=== PATIENT | male | born 1970 | race Caucasian/White ===

== ENCOUNTER 2022-03-06 13:34 | Inpatient (IN) | payer SELFPAY ==
[2022-03-06] VITALS (10 sets, daily range): BP systolic 102–130; BP diastolic 57–73; PULSE 114–128; RESP 17–32; TEMP 36.4–37; O2SAT 93–98; BMI 22.5; BMI 21.1
--- NOTE | 2022-03-06 14:23 | EDS_ITS ---
HPI History of Present Illness Chief Complaint: Shortness of Breath Narrative Narrative: 51-year-old male past medical history of asthma, does not see a primary care provider, presents with increasing dyspnea on exertion and shortness of breath since last evening. He states he went to [employer] to get a Primatene Mist inhaler, and short distances he became very winded. He denies any chest pain. No fevers or chills. He has occasional cough that sometimes is productive of green to yellow sputum. He denies any increased leg swelling. He is a smoker. He denies other past medical history. [facility] Medical History Asthma History of alcohol abuse Tobacco abuse Home Medications NK 03/06/22 [History Last Taken Unknown] Allergy/AdvReac Type Severity Reaction Status Date / Time No Known Allergies Allergy Verified 03/06/22 13:34 Social History (Updated 03/06/22 @ 19:[address] Nisreen Sterling DO) Smoking Status: Current every day smoker tobacco type: cigarettes alcohol intake: former substance use type: does not use ROS ROS ED ROS Narrative Constitutional: No fever, no chills. HEENT: No sore throat. No neck pain. No loss of vision. No rhinorrhea. Cardiovascular: No chest pain. No palpitations. No pedal edema. Respiratory: Occasionally productive cough, positive dyspnea on exertion/shortness of breath. Abdominal: No abdominal pain. No nausea. No vomiting. Genitourinary: No dysuria. No hematuria. Musculoskeletal: No myalgias. No arthralgias. Neurologic: No headaches. No dizziness. No lightheadedness. Skin: No rash. No change in color. Psychiatric: No depression. No anxiety. EXAM Physical Exam Narrative Exam Narrative: Afebrile. Vital signs noted. HEENT: Normocephalic. Atraumatic. PERRL, EOMI. Neck soft and supple. No point tenderness or step off. Cardiovascular: Positive tachycardia. No murmurs, rubs, or gallops appreciated. Respiratory: No tachypnea. Lungs clear to auscultation bilaterally. Gastrointestinal: Abdomen soft, nontender, with normoactive bowel sounds. No rebound or guarding. Neurological: Awake. Alert. Nonfocal, nonlateralizing. Skin: No rash. Normal color. No pallor. Musculoskeletal: No pedal edema. Full range of motion extremities. Const Vital Signs: 03/06/22 13:34 03/06/22 14:45 03/06/22 14:45 Temperature 97.5 F L Temperature Source Temporal Pulse Rate 128 H Respiratory Rate 18 32 H Respiratory Effort Respiratory Pattern Blood Pressure 111/72 Blood Pressure Mean 85 Pulse Ox 97 94 94 Oxygen Delivery Method Room Air Room Air Room Air 03/06/22 14:45 03/06/22 15:31 03/06/22 15:33 Temperature Temperature Source Pulse Rate 114 H Respiratory Rate 30 H Respiratory Effort Short of Breath Respiratory Pattern Tachypnea Blood Pressure 129/72 H Blood Pressure Mean 91 Pulse Ox 95 96 Oxygen Delivery Method Room Air Room Air Room Air 03/06/22 17:01 03/06/22 18:12 Temperature 98.6 F Temperature Source Oral Pulse Rate 119 H 118 H Respiratory Rate 17 28 H Respiratory Effort Respiratory Pattern Blood Pressure 125/71 H 102/57 L Blood Pressure Mean 89 72 Pulse Ox 96 95 Oxygen Delivery Method Room Air Room Air MDM MDM MDM Narrative Medical decision making narrative: RN protocol orders were entered. COVID and influenza swab is negative. Chest x-ray was obtained along with CBC, BMP, and given his tachycardia I ordered a D- dimer if I can rule out pulmonary embolism because of his tachycardia. In the differential diagnosis is also undiagnosed COPD exacerbation versus bronchitis versus pneumonia as he is a smoker. EKG was obtained and interpreted by myself which demonstrates sinus tachycardia at 116 bpm without ectopy or acute ST changes. No STEMI. Initial laboratory work was reviewed his CBC shows elevated white count of 25.7 with hemoglobin anemic at 8.7, platelet count elevated at 1034. Given his tachycardia, my concern is becoming more for sepsis. BMP has returned with hyponatremia of 131, chloride 94 with mild dehydration, normal creatinine and normal BUN. Glucose appropriately elevated at 107 with an anion gap of 10. Chest x-ray interpreted by myself shows a left lower lobe pneumonia. I reviewed the radiology report and agree with left lower lobe pneumonia versus mass, or hernia. I do think that given his breathing difficulty and history of smoker, concern is more for pneumonia and mass. Sepsis work-up was then initiated to include lactic acid and blood cultures. He will be treated with IV antibiotics. However, he also has an elevated D-dimer. CTA will be obtained to further evaluate the left lower lobe consolidation versus mass and to rule out pulmonary embolism. CTA was reviewed. I initially interpreted independently and saw what appears to be a loculated fluid collection. I discussed the patient with the radiologist over the telephone and he states that given the bony erosion of his ribs this is concerning for abscess of the lung/empyema also. His lactic acid was reviewed and is normal at 1.4. He was administered azithromycin and Rocephin initially. Given concern for empyema, I discussed the patient with the hospitalist, Dr. Ora Sterling. She states that she had already discussed the patient with Dr. Cardoso, and the patient will most likely require CT surgery involvement and transfer to a tertiary care center. However, I have contacted 4 different hospitals including [facility], [facility], [facility], and [facility] and there are no available beds, and they are on wait lists. I read discussed the patient with Dr. Ora Sterling who would like Dr. Pagan with surgery consulted if he is to be admitted here at least temporarily while awaiting a bed at a tertiary care center. I discussed the patient with Dr. Pagan who states he is able to put in a chest tube. With further discussion with Dr. Ora Sterling, she will admit the patient to the medical surgical floor in stable condition. I do not feel that he needs ICU admission as Dr. Pagan is at the bedside putting in a chest tube to remove some of the fluid of this pulmonary abscess. Of note, I was able to contact [facility] and the patient was put on a wait list for an available bed, possibly tomorrow. Lab Data Attestation: I reviewed the patient's lab results. Labs: Laboratory Results - last 24 hr 03/06/22 03/06/22 03/06/22 14:26 14:26 14:26 WBC 25.7 H RBC 4.06 L Hgb 8.7 L Hct 31.0 L MCV 76.4 L MCH 21.4 L MCHC 28.1 L RDW Std Deviation 48.2 H RDW Coeff of Andrew 17.2 H Plt Count 1034 H* MPV 7.6 Immature Gran % (Auto) 2.300 H Neut % (Auto) 78.7 H Lymph % (Auto) 13.2 L [place] % (Auto) 5.1 Eos % (Auto) 0.3 Baso % (Auto) 0.4 Absolute Neuts (auto) 20.2 H Absolute Lymphs (auto) 3.38 Nucleated RBC % 0 Diff Path Review May foll Platelet Estimate MKD INC Hypochromasia 1+ Anisocytosis 2+ Microcytosis 1+ PT INR APTT D-Dimer Quant (PE/DVT) Sodium 131 L Potassium 3.9 Chloride 94 L Carbon Dioxide 27.0 Anion Gap 10 BUN 10 Creatinine 0.80 Estim Creat Clear Calc 102.56 Est GFR (MDRD) Af Amer 130 Est GFR (MDRD) Non-Af 108 BUN/Creatinine Ratio 12.5 Glucose 107 H Lactic Acid Calcium 9.4 Lactate Dehydrogenase 180 Urine Color Urine Clarity Urine pH Ur Specific [place] Urine Protein Urine Glucose (UA) Urine Ketones Urine Occult Blood Urine Nitrite Urine Bilirubin Urine Urobilinogen Ur Leukocyte Esterase Urine RBC Urine WBC Ur Squamous Epith Cells Urine Bacteria Urine Mucus 03/06/22 03/06/22 03/06/22 15:00 15:00 16:08 WBC RBC Hgb Hct MCV MCH MCHC RDW Std Deviation RDW Coeff of Andrew Plt Count MPV Immature Gran % (Auto) Neut % (Auto) Lymph % (Auto) [place] % (Auto) Eos % (Auto) Baso % (Auto) Absolute Neuts (auto) Absolute Lymphs (auto) Nucleated RBC % Diff Path Review Platelet Estimate Hypochromasia Anisocytosis Microcytosis PT 16.6 H INR 1.4 APTT 36.9 H D-Dimer Quant (PE/DVT) 1.56 H* Sodium Potassium Chloride Carbon Dioxide Anion Gap BUN Creatinine Estim Creat Clear Calc Est GFR (MDRD) Af Amer Est GFR (MDRD) Non-Af BUN/Creatinine Ratio Glucose Lactic Acid 1.4 Calcium Lactate Dehydrogenase Urine Color Urine Clarity Urine pH Ur Specific [place] Urine Protein Urine Glucose (UA) Urine Ketones Urine Occult Blood Urine Nitrite Urine Bilirubin Urine Urobilinogen Ur Leukocyte Esterase Urine RBC Urine WBC Ur Squamous Epith Cells Urine Bacteria Urine Mucus 03/06/22 16:52 WBC RBC Hgb Hct MCV MCH MCHC RDW Std Deviation RDW Coeff of Andrew Plt Count MPV Immature Gran % (Auto) Neut % (Auto) Lymph % (Auto) [place] % (Auto) Eos % (Auto) Baso % (Auto) Absolute Neuts (auto) Absolute Lymphs (auto) Nucleated RBC % Diff Path Review Platelet Estimate Hypochromasia Anisocytosis Microcytosis PT INR APTT D-Dimer Quant (PE/DVT) Sodium Potassium Chloride Carbon Dioxide Anion Gap BUN Creatinine Estim Creat Clear Calc Est GFR (MDRD) Af Amer Est GFR (MDRD) Non-Af BUN/Creatinine Ratio Glucose Lactic Acid Calcium Lactate Dehydrogenase Urine Color Yellow Urine Clarity Clear Urine pH 6.5 Ur Specific [place] 1.010 Urine Protein 15 H Urine Glucose (UA) Normal Urine Ketones 50 H Urine Occult Blood Negative Urine Nitrite Negative Urine Bilirubin Negative Urine Urobilinogen 1 H Ur Leukocyte Esterase Negative Urine RBC 0 SEEN Urine WBC 0 SEEN Ur Squamous Epith Cells 0-5 SEEN Urine Bacteria 0 SEEN Urine Mucus 0 SEEN Radiography Diagnostic Testing: Clinical Impression(s) from Imaging Studies Chest X-Ray 03/06/22 14:55 IMPRESSION: Left lower lobe mass, diaphragm hernia, or infiltrate is visualized. CT chest can better evaluate. Electronically Signed: Adama Olivera MD at 15:11 EST , Chest CTA 03/06/22 15:22 IMPRESSION: 1. No demonstrated pulmonary embolism or arterial dissection. 2. There is a loculated left pleural effusion. Pleural fluid extends through the ribs into the left axillary space. Mild erosive changes of the left lateral seventh and eighth rib overlying the pleural fluid. Differential would include pulmonary abscess versus a neoplastic process. Electronically Signed: Adama Olivera MD at 16:43 EST , ADDENDUM: 03/06/22 1657 IMPRESSION: 1. No demonstrated pulmonary embolism or arterial dissection. 2. There is a loculated left pleural effusion. Pleural fluid extends through the ribs into the left axillary space. Mild erosive changes of the left lateral seventh and eighth rib overlying the pleural fluid. Differential would include pulmonary abscess versus a neoplastic process. N.B. : The above Results were Read Back by Adama Olivera MD to Leoncio Garcia MD, and understanding confirmed on 03/06/2022 16:50:37 (ET). Electronically Signed: Adama Olivera MD at 16:43 EST Reading Location ID and State: [facility] / [place] , Service support , Critical Care Time Critical Care Time: Yes Critical care time (excluding procedures): 30-74 minutes (33 minutes), Including time spent:, Discussing w/Patient &/or Family/Continuity Writer, Discussing w/Consultants, Arranging Admission or Transfer and Performing Direct Patient Care at Bedside Discharge Plan Dx/Rx/DC Orders Clinical Impression: Abscess of lung, Thrombophilia, Leukocytosis Disposition Disposition: Acute Care Hospital [facility] Discharge Date/Time: 03/06/22 21:42
[2022-03-06 14:34] LABS: Absolute Lymphocyte Count 3.38 X10^3/uL (0.83-4.51); Absolute Neutrophil Count 20.2 X10^3/uL (2.0-7.7); Basophil# 0.11 X10^3/uL; Basophil% 0.4 % (0-1); Eosinophil# 0.07 X10^3/uL; Eosinophils% 0.3 % (0-5); Hemoglobin 8.7 g/dL (13.0-16.5); Lymphocyte # 3.38 X10^3/ul (0.83-4.51); Lymphocyte % 13.2 % (19-41); Mean Corp Hgb Conc 28.1 g/dL (32-36); Mean Corpuscular Hgb 21.4 pg (27.0-32.0); Mean Corpuscular Volume 76.4 fL (80-94); Mean Platelet Vol. 7.6 fl (6.2-12.0); Monocyte# 1.31 X10^3/uL; Monocyte% 5.1 % (0-10); NRBC Flagged by Analyzer 0 % (0-5); Neutrophil # 20.19 X10^3/uL (2.7-7.7); Neutrophil % 78.7 % (47-70); POSITIVE COUNT YES; POSITIVE DIFFERENTIAL YES; Platelet Count 1034 K/mm3 (150-450); RBC Distribution Width CV 17.2 % (11.6-14.6); RBC Distribution Width SD 48.2 fl (35.1-43.9); Red Blood Count 4.06 M/mm3 (4.6-6.2); White Blood Count 25.7 K/mm3 (4.4-11.0)
[2022-03-06 14:46] LABS: Anion Gap 10 (5-15); BUN 10 mg/dL (7-18); BUN/Creat Ratio 12.5 RATIO (10-20); Calcium,Total 9.4 mg/dL (8.5-10.1); Chloride 94 mmol/L (98-107); EST Glomerular Filtration Rate 108 mL/min (>60); Est Glom Filt Rate - Afr Amer 130 mL/min (>60); Estimated Creatinine Clearance 102.56 ml/min; Glucose 107 mg/dL (74-106); Potassium 3.9 mmol/L (3.5-5.1); Sodium Level 131 mmol/L (136-145)
--- NOTE | 2022-03-06 14:55 | RAD_ITS ---
STUDY: X-RAY CHEST REASON FOR EXAM: Male, 51 years old. COUGH TECHNIQUE: XR Chest 1 View COMPARISON: Prior comparison studies are not available for review at this time. FINDINGS: There is atherosclerotic calcification of the aortic arch with tortuosity. There are diffuse degenerative changes of the visualized thoracic spine. There is degenerative osteoarthritis of the bilateral shoulders. There is no demonstrated pleural abnormality. Left lower lobe mass, diaphragm hernia, or infiltrate is visualized. CT chest can better evaluate. Normal size heart. Normal mediastinum and librado. Normal visualized pulmonary arteries. There is no demonstrated abnormality of the visualized soft tissue structures of the upper abdomen. RAD/Chest 1 View (Portable) IMPRESSION: Left lower lobe mass, diaphragm hernia, or infiltrate is visualized. CT chest can better evaluate. Electronically Signed: Adama Olivera MD at 15:11 EST ,
[2022-03-06 14:56] LABS: Differential Indicated SCAN CRITERIA MET; Platelet Estimate MKD INC (ADEQ)
[2022-03-06 14:57] LABS: Anisocytosis 2+; Hypochromasia 1+; Microcytosis 1+
[2022-03-06] MEDS: 0.9% Normal Saline 1,000 ML 999 ML IV (14:59)
--- NOTE | 2022-03-06 15:13 | EKG12_ITS ---
Test Reason : SOB Blood Pressure : / mmHG Vent. Rate : 116 BPM Atrial Rate : 116 BPM P-R Int : 134 ms QRS Dur : 080 ms QT Int : 316 ms P-R-T Axes : 065 027 055 degrees QTc Int : 439 ms Sinus tachycardia Otherwise normal ECG Confirmed by KITA ROBERTS, TOMA ([id number]), editor & co founder ORESTES GRIFFIN ([id number]) on 03/08/2022 1:48:40 PM Referred By: Confirmed By:TOMA EAST MD
[2022-03-06 15:21] LABS: D-Dimer Quantitative (DVT/PE) 1.56 FEU/ug/m (0.27-0.49)
--- NOTE | 2022-03-06 15:22 | CT_ITS ---
We are attempting to reach an attending provider to discuss findings. An addendum with communication details will be sent when the communication is complete. EXAM: CT ANGIOGRAPHY CHEST WITHOUT AND WITH INTRAVENOUS CONTRAST CLINICAL INDICATION: Elevated D dimer PT ARRIVES TO ED WITH INCREASED SOB. HX OF HEAVY SMOKER WITH ASTHMA. TECHNIQUE: Helically acquired angiography images were obtained of the chest without and with intravenous contrast. This CT exam was performed using one or more of the following dose reduction techniques: automated exposure control, adjustment of the mA and/or kV according to patient size, and/or use of iterative reconstruction technique. This report was created using [employer] report [employer] technology. MIP reconstructed images were created and reviewed. CONTRAST: IV 100mL [id number] RADIATION DOSE: CTDIvol = 10.48 mGy, DLP = 411.58 mGy-cm COMPARISON: None. FINDINGS: PULMONARY ARTERIES: No demonstrated pulmonary embolism or arterial dissection. AORTA: Unremarkable. Normal in caliber. No evidence of dissection. GREAT VESSELS OF AORTIC ARCH: Unremarkable. Normal in caliber. No evidence of dissection. LUNGS AND PLEURAL SPACES: There is a loculated left pleural effusion. Pleural fluid extends through the ribs into the left axillary space. Mild erosive changes of the left lateral seventh and eighth rib overlying the pleural fluid. Differential would include pulmonary abscess versus a neoplastic process. No mass. No pneumothorax. HEART: Unremarkable. Heart size is normal. No pericardial effusion. No signs of right heart strain, ratio of right ventricle to left ventricle measures less than 1. MEDIASTINUM: Unremarkable. No mediastinal or hilar adenopathy. Esophagus is unremarkable. No hiatal hernia. THYROID: Unremarkable. No thyroid lesions. BONES/JOINTS: There are degenerative changes of the shoulders. There are multi-level degenerative changes of the thoracic spine. No suspicious lytic or blastic abnormality. OTHER FINDINGS: Critical finding called and case discussed. CT/CTA Chest W/WO Contrast IMPRESSION: 1. No demonstrated pulmonary embolism or arterial dissection. 2. There is a loculated left pleural effusion. Pleural fluid extends through the ribs into the left axillary space. Mild erosive changes of the left lateral seventh and eighth rib overlying the pleural fluid. Differential would include pulmonary abscess versus a neoplastic process. Electronically Signed: Adama Olivera MD at 16:43 EST ,
[2022-03-06 16:42] LABS: International Normalized Ratio 1.4; Prothrombin Time (Protime)PT. 16.6 SECONDS (11.7-14.9)
[2022-03-06 16:43] LABS: Partial Thromboplast Time 36.9 Seconds (24.1-36.2)
[2022-03-06 17:02] LABS: Bacteria 0 SEEN /hpf (None Seen); Mucous, Urine 0 SEEN /hpf (<or=2+); Red Blood Cells-Urine 0 SEEN /hpf (0-5); White Blood Cells 0 SEEN /hpf (0-5)
[2022-03-06 17:03] LABS: Color, Urine Yellow (Yellow); Glucose, Dipstick Normal (Normal); Ketone-Dipstick 50 mg/dl (Negative); Leukocyte Esterase-Dipstick Negative /ul (Negative); Nitrite-Dipstick Negative (Negative); Occult Blood-Urine Negative /ul (Negative); Protein-Dipstick 15 mg/dl (Negative); Urine Bilirubin Dipstick Negative (Negative); Urine Clarity Clear (Clear); Urine Urobilinogen 1 mg/dl (Normal); Urine pH 6.5 (5.0 - 8.0)
[2022-03-06 17:09] LABS: Lactic Acid 1.4 mmol/L (0.4-1.9)
[2022-03-06 17:14] LABS: Squamous Epithelial Cells - UA 0-5 SEEN /hpf (0-5)
--- NOTE | 2022-03-06 18:55 | PCM.HP.STD ---
[facility] - General General Date of Admission: 03/06/22 Date of Service: 03/06/22 Chief Complaint: Shortness of breath HPI Scott CLIFTON, is a 51 M who presented to the emergency department [facility] on 03/06/2022 with shortness of breath. Patient states he has had a cough for about the last 2 to 3 days and was walking into the store where he got overtly dyspneic and felt like he was going to pass out. He denied any chest pain, fever, chills, leg swelling, lumps or bumps, nausea, vomiting, diarrhea, melena, hematochezia, night sweats, unintentional weight loss. He states his cough is intermittently productive of yellowish-green sputum. He does not follow with a physician regularly although he does report he has asthma. He does does smoke about 1/4 pack of cigarettes a day and has remote history of alcohol use but none recently. Upon presentation the emergency department his temperature was 97.5, heart rate 128, blood pressure 111/72, respiratory rate was anywhere from 17-32 and oxygen saturations were 94 to 97% on room air. His CBC shows a markedly elevated leukocytosis with a white count of 25.7 and a left shift with 78.7% neutrophilia. The differential was unremarkable otherwise. He had a microcytic anemia with a hemoglobin of 8.7 (baseline unknown). He also had a markedly elevated platelet count at 1,034,000. His coags showed mildly elevated PT and PTT as well as INR of 1.4. His D-dimer was 1.56. His chemistry showed mild hyponatremia and hypochloremia with normal renal function. His lactic acid was 1.4. His UA is not suggestive of infection. His EKG shows sinus tachycardia. Chest x-ray showed a left lower lobe mass, diaphragmatic hernia or infiltrate and therefore a CTA of his chest was performed. CTA of his chest demonstrated no PE or arterial dissection however there was a large loculated left pleural effusion with pleural fluid extending through the ribs into the axillary space and mild erosive changes at the lateral left seventh and eighth ribs. I discussed the case with the emergency department physician and felt he would need definitive treatment with CT surgery and they called and got him on a waiting list at [facility] however there are no current beds available. General surgery here was also called and Dr. Pagan agreed to place a left-sided chest tube in the patient for temporary management. We both feel that he will need CT surgery involvement ultimately. [facility] Medical History Asthma History of alcohol abuse Tobacco abuse Home Medications NK 03/06/22 [History Last Taken Unknown] Allergy/AdvReac Type Severity Reaction Status Date / Time No Known Allergies Allergy Verified 03/06/22 13:34 no significant family history no surgical history Social History (Updated 03/06/22 @ 19:[address] Nisreen Sterling DO) Smoking Status: Current every day smoker tobacco type: cigarettes Smoking packs per day: 0.25 Smoking cigarettes per day: 5.0 alcohol intake: former substance use type: does not use ROS Constitutional Constitutional: Denies anorexia, change in weight, chills, fatigue, fever(s), malaise, night sweats, weakness or other Eyes Eyes: Denies blurry vision, change in eye color, change in vision, discharge from eye(s), double vision, erythema, eye pain, loss of vision or other ENT HEENT: Denies abnormal hearing, dysphagia, ear pain, epistaxis, headache(s), hearing loss, nasal congestion, nasal discharge, post nasal drip, sinus pressure, sore throat or other Cardiovascular Cardiovascular: Denies chest pain, claudication, dyspnea on exertion, edema, lightheadedness, orthopnea, palpitations, paroxysmal nocturnal dyspnea, rapid heart rate, syncope or other Respiratory/Chest Respiratory/Chest: Reports cough, dyspnea, productive cough and shortness of breath with exertion; Denies excessive phlegm production, hemoptysis, shortness of breath at rest, wheezing or other Gastrointestinal Gastrointestinal: Denies abdominal pain, coffee ground emesis, constipation, diarrhea, dyspepsia, hematemesis, hematochezia, loose stools, melena, nausea, vomiting or other Genitourinary Genitourinary: Denies burning urination, difficulty urinating, dysuria, hematuria, nocturia, urinary frequency, urinary hesitancy, urinary incontinence, urinary urgency or other Musculoskeletal Musculoskeletal: Denies arthralgias, back pain, joint pain, joint stiffness, joint swelling, myalgias, neck pain or other Neurologic Neurologic: Denies abnormal gait, abnormal speech, confusion, disequilibrium, dizziness, focal weakness, headache(s), numbness, paresthesias, seizure-like activity, seizures, syncope, tingling, tremor(s) or other Psychiatric Psychiatric: Denies anxiety, depression, homicidal ideation, suicidal ideation or other Endocrine Endocrinology: Denies change in body appearance, cold intolerance, excessive sweating, heat intolerance, polydipsia, polyuria or other Hematologic/Lymphatic Hematologic/Lymphatic: Denies anemia, easy bleeding, easy bruising, lymphadenopathy or other Allergic/Immunologic Allergic/Immunologic: Denies rhinitis, hives, eczemia, asthma or other Vital Signs Vital Signs Vital Signs: 03/06/22 13:34 03/06/22 14:45 03/06/22 14:45 Temperature 97.5 F L Temperature Source Temporal Pulse Rate 128 H Respiratory Rate 18 32 H Respiratory Effort Respiratory Pattern Blood Pressure 111/72 Blood Pressure Mean 85 Pulse Ox 97 94 94 Oxygen Delivery Method Room Air Room Air Room Air 03/06/22 14:45 03/06/22 15:31 03/06/22 15:33 Temperature Temperature Source Pulse Rate 114 H Respiratory Rate 30 H Respiratory Effort Short of Breath Respiratory Pattern Tachypnea Blood Pressure 129/72 H Blood Pressure Mean 91 Pulse Ox 95 96 Oxygen Delivery Method Room Air Room Air Room Air 03/06/22 17:01 03/06/22 18:12 Temperature 98.6 F Temperature Source Oral Pulse Rate 119 H 118 H Respiratory Rate 17 28 H Respiratory Effort Respiratory Pattern Blood Pressure 125/71 H 102/57 L Blood Pressure Mean 89 72 Pulse Ox 96 95 Oxygen Delivery Method Room Air Room Air Weight Weight: 67.132 kg Body Mass Index (BMI) 22.5 Physical Exam Const alert, oriented x3 and no apparent distress Constitutional Narrative: Thin, middle-aged white male, sitting up in bed watching television the emergency department, appears comfortable and nontoxic, appears malnourished and much older than stated age General Appearance: cooperative HEENT normocephalic, head/scalp atraumatic, hearing grossly normal bilaterally and moist oral mucous membranes HEENT Narrative: Significant temporal wasting, dentition is poor with significant caries and teeth he has left, Mallampati is 1, no thrush Eyes PERRL and EOMs intact bilaterally; Negative for conjunctivae normal Eyes Narrative: Conjunctival pallor, no scleral icterus Neck no lymphadenopathy, supple, no JVD and no carotid bruits Neck Narrative: Trachea midline, no thyroid enlargement Resp Resp Narrative: Absent breath sounds at base that extends approximately two th[address] way to the apex, diminished but clear on the right with few scattered wheeze and expiratory Auscultation: wheezes; Negative for crackles or rhonchi Cardio regular rhythm, S1 normal heart sound, S2 normal heart sound, no murmurs, no rub, no gallops and no clicks Cardio Narrative: Tachycardia-mild GI normal to inspection, nondistended, normoactive bowel sounds, soft to palpation and non-tender GI Narrative: Scaphoid Extremity no clubbing, cyanosis or edema Extremity Narrative: 2+ pedal pulses Skin no rashes or lesions noted, no wounds, skin turgor normal, no jaundice, no petechiae and no mottling Skin Narrative: Pale Neuro oriented x3, CN's II-XII intact bilaterally, moves all extremities and no focal motor deficits Speech: speech normal Psych affect normal Psych Narrative: Very pleasant and appropriately interactive Results Lab / Micro Data Attestation: I reviewed the patient's lab results. Result Diagrams: 03/06/22 14:26 03/06/22 14:26 Labs: Laboratory Results - last 24 hr 03/06/22 14:26: WBC 25.7 H, RBC 4.06 L, Hgb 8.7 L, Hct 31.0 L, MCV 76.4 L, MCH 21.4 L, MCHC 28.1 L, RDW Std Deviation 48.2 H, RDW Coeff of Andrew 17.2 H, Plt Count 1034 H*, MPV 7.6, Immature Gran % (Auto) 2.300 H, Neut % (Auto) 78.7 H, Lymph % (Auto) 13.2 L, [place] % (Auto) 5.1, Eos % (Auto) 0.3, Baso % (Auto) 0.4, Absolute Neuts (auto) 20.2 H, Absolute Lymphs (auto) 3.38, Nucleated RBC % 0, Diff Path Review May foll, Platelet Estimate MKD INC, Hypochromasia 1+, Anisocytosis 2+, Microcytosis 1+ 03/06/22 14:26: Sodium 131 L, Potassium 3.9, Chloride 94 L, Carbon Dioxide 27.0, Anion Gap 10, BUN 10, Creatinine 0.80, Estim Creat Clear Calc 102.56, Est GFR (MDRD) Af Amer 130, Est GFR (MDRD) Non-Af 108, BUN/Creatinine Ratio 12.5, Glucose 107 H, Calcium 9.4 03/06/22 15:00: D-Dimer Quant (PE/DVT) 1.56 H* 03/06/22 15:00: PT 16.6 H, INR 1.4, APTT 36.9 H 03/06/22 16:08: Lactic Acid 1.4 03/06/22 16:52: Urine Color Yellow, Urine Clarity Clear, Urine pH 6.5, Ur Specific [place] 1.010, Urine Protein 15 H, Urine Glucose (UA) Normal, Urine Ketones 50 H, Urine Occult Blood Negative, Urine Nitrite Negative, Urine Bilirubin Negative, Urine Urobilinogen 1 H, Ur Leukocyte Esterase Negative, Urine RBC 0 SEEN, Urine WBC 0 SEEN, Ur Squamous Epith Cells 0-5 SEEN, Urine Bacteria 0 SEEN, Urine Mucus 0 SEEN Micro: Microbiology 03/06/22 13:45 Nasal Secretion SARS-CoV-2 & FLU Antigen (Rapid) - Final Radiology Impression Chest X-Ray 03/06/22 14:55 IMPRESSION: Left lower lobe mass, diaphragm hernia, or infiltrate is visualized. CT chest can better evaluate. Electronically Signed: Adama Olivera MD at 15:11 EST , Chest CTA 03/06/22 15:22 IMPRESSION: 1. No demonstrated pulmonary embolism or arterial dissection. 2. There is a loculated left pleural effusion. Pleural fluid extends through the ribs into the left axillary space. Mild erosive changes of the left lateral seventh and eighth rib overlying the pleural fluid. Differential would include pulmonary abscess versus a neoplastic process. Electronically Signed: Adama Olivera MD at 16:43 EST , ADDENDUM: 03/06/22 1657 IMPRESSION: 1. No demonstrated pulmonary embolism or arterial dissection. 2. There is a loculated left pleural effusion. Pleural fluid extends through the ribs into the left axillary space. Mild erosive changes of the left lateral seventh and eighth rib overlying the pleural fluid. Differential would include pulmonary abscess versus a neoplastic process. N.B. : The above Results were Read Back by Adama Olivera MD to Leoncio Garcia MD, and understanding confirmed on 03/06/2022 16:50:37 (ET). Electronically Signed: Adama Olivera MD at 16:43 EST , Assessment & Plan Assessment/Plan (1) Microcytic anemia: (2) Shortness of breath: (3) Pleural effusion, left: (4) Thrombophilia: (5) Leukocytosis: PLAN: Plan Large left pleural effusion -Suspect malignant versus empyema -CTA of the chest shows no PE or arterial dissection but a loculated large left pleural effusion that extends through the ribs into the axillary space on the left with mild erosive changes of the left lateral seventh and eighth rib overlying the pleural fluid -Dr. Pagan on consult and placing chest tube in the emergency department -Send fluid for cytology and cultures as well as lab for lights criteria -LDH pending serum -Start broad-spectrum antibiotics with vancomycin and Zosyn -Check sputum culture -Transfer in progress to [facility] for definitive treatment with cardiothoracic surgery as I suspect this will least need a decortication -Pain medication for chest tube -Bowel regimen with pain medication Leukocytosis -White count is markedly elevated and there is a left shift -Blood and urine cultures are pending -Sputum culture ordered if able to produce -Broad-spectrum antibiotics -Check HIV -Repeat lab in a.m. Thrombophilia -Likely related to acute infectious process versus malignancy -Repeat in a.m. -DVT prophylaxis Microcytic anemia -Baseline unknown -Patient does not have any symptoms consistent with acute blood loss including hemoptysis/melena/hematochezia/hematemesis -Check iron studies/ferritin/reticulocyte count -Repeat CBC in a.m. -Check Hemoccult Shortness of breath -Patient is not requiring any supplemental oxygen -Likely related to large effusion on the left -Should improve with chest tube placement and drainage -Monitor oxygen saturations Suspected malnutrition -Dietitian consulted -Start Ensure supplements -Start Tyson supplements as I do anticipate the patient will need CT surgery involvement Tobacco abuse -Smoking about a quarter of a pack a day -Recommend cessation -Patient denies need for nicotine replacement therapy History of alcohol abuse -Remote -Encourage continued cessation DVT prophylaxis -Lovenox 40 mg daily CODE STATUS -Full code Charges/Coding Visit Charges Inpatient E&M: 06855 Init Hosp L3
[2022-03-06] MEDS: HYDROmorphone 0.5 MG/0.5 ML SYRINGE IV (18:57)
--- NOTE | 2022-03-06 19:13 | ED.RN ---
[facility] TRANSFER LINE CALLS BACK TO ED. REPORTS PT WILL BE ACCEPTED UNDER DR. EISENBERG. PT IS ON A WAIT LIST FOR A BED AT [facility]. PER TRANSFER LINE, PT WILL LIKELY NO HAVE A BED UNTIL TOMORROW.
[2022-03-06] MEDS: Lidocaine 1% (30 ml sdv) 30 ML Vial INFILT (19:28)
[2022-03-06 19:40] LABS: LDH 180 U/L (87-241)
--- NOTE | 2022-03-06 20:28 | EX.PCM.CON.S ---
Assessment & Plan Assessment/Plan (1) Pleural effusion, left: PLAN: This is a 51-year-old male with minimal past medical history aside from smoking and asthma, who presents with a rather acute onset of dyspnea. ER work-up has been remarkable for laboratories that demonstrate anemia, severe leukocytosis, and significant thrombocytosis. Given an elevated D-dimer, CTA of the chest was ordered. While no pulmonary embolus was identified a large loculated left-sided pleural effusion was described. There is apparent to radiology that this effusion may be eroding the patient's inner chest wall and extending beyond the pleural cavity proper. On observing this CT imaging for myself, I agreed with my colleagues that patient would benefit from transfer to a tertiary facility with cardiothoracic surgery capabilities. I was quickly notified, however, that located within [facility] were not able to accept patient in transfer due to limited bed availability this evening. Therefore, I was asked to place a chest tube into this loculation to try to obtain source control while we await bed availability. I agreed to this request, but was careful to lay out to Mr. Weaver that our differential includes infectious etiologies, neoplastic etiologies, and potential to involve both. With this differential, I shared with them that he should expect transfer once a bed is available. Patient expressed understanding of this information also provided his consent to provide with left-sided thoracostomy. Please see procedure note for more detailed explanation of this procedure. Patient to be admitted to the hospitalist service, but surgery will continue to follow for chest tube management. HPI Consult Data Date of Consult: 03/06/22 HPI Narrative HPI Narrative: KANDIS WEAVER, is a 51 M who presents to [facility] with complaints of shortness of breath that developed acutely over the last 2 days. Along with his shortness of breath he has experienced a mildly productive cough. He states it has been productive of alternating clear and thin yellow sputum. He denies any hemoptysis or hematemesis. He has no recent history of weight loss aside from some intentional weight loss that he began to undertake a year ago. He denies feeling any recent lymphadenopathy. Patient admits to a longstanding diagnosis of asthma and smoking. [facility] Medical History Asthma History of alcohol abuse Tobacco abuse Home Medications NK 03/06/22 [History Last Taken Unknown] Allergy/AdvReac Type Severity Reaction Status Date / Time No Known Allergies Allergy Verified 03/06/22 13:34 Family History no significant family his Surgical History no surgical history Social History (Updated 03/06/22 @ 19:[address] Nisreen Sterling, DO) Smoking Status: Current every day smoker tobacco type: cigarettes Smoking packs per day: 0.25 Smoking cigarettes per day: 5.0 alcohol intake: former substance use type: does not use Physical Exam Const alert and oriented x3 Constitutional Narrative: Mildly dyspneic General Appearance: cooperative and disheveled Chest Chest Narrative: Patient with a rounded fluctuant bump to his upper posterior chest wall that is soft and tender to palpation. There is no superficial erythema or warmth to the area. Resp Resp Narrative: Mildly labored breathing Effort and Inspection: able to speak in complete sentences Lab / Micro Data Result Diagrams: 03/06/22 14:26 03/06/22 14:26 Labs: Laboratory Results - last 24 hr 03/06/22 14:26: WBC 25.7 H, RBC 4.06 L, Hgb 8.7 L, Hct 31.0 L, MCV 76.4 L, MCH 21.4 L, MCHC 28.1 L, RDW Std Deviation 48.2 H, RDW Coeff of Andrew 17.2 H, Plt Count 1034 H*, MPV 7.6, Immature Gran % (Auto) 2.300 H, Neut % (Auto) 78.7 H, Lymph % (Auto) 13.2 L, [place] % (Auto) 5.1, Eos % (Auto) 0.3, Baso % (Auto) 0.4, Absolute Neuts (auto) 20.2 H, Absolute Lymphs (auto) 3.38, Nucleated RBC % 0, Diff Path Review May , Platelet Estimate MKD INC, Hypochromasia 1+, Anisocytosis 2+, Microcytosis 1+ 03/06/22 14:26: Sodium 131 L, Potassium 3.9, Chloride 94 L, Carbon Dioxide 27.0, Anion Gap 10, BUN 10, Creatinine 0.80, Estim Creat Clear Calc 102.56, Est GFR (MDRD) Af Amer 130, Est GFR (MDRD) Non-Af 108, BUN/Creatinine Ratio 12.5, Glucose 107 H, Calcium 9.4 03/06/22 14:26: Lactate Dehydrogenase 180 03/06/22 15:00: D-Dimer Quant (PE/DVT) 1.56 H* 03/06/22 15:00: PT 16.6 H, INR 1.4, APTT 36.9 H 03/06/22 16:08: Lactic Acid 1.4 03/06/22 16:52: Urine Color Yellow, Urine Clarity Clear, Urine pH 6.5, Ur Specific [place] 1.010, Urine Protein 15 H, Urine Glucose (UA) Normal, Urine Ketones 50 H, Urine Occult Blood Negative, Urine Nitrite Negative, Urine Bilirubin Negative, Urine Urobilinogen 1 H, Ur Leukocyte Esterase Negative, Urine RBC 0 SEEN, Urine WBC 0 SEEN, Ur Squamous Epith Cells 0-5 SEEN, Urine Bacteria 0 SEEN, Urine Mucus 0 SEEN Micro: Microbiology 03/06/22 13:45 Nasal Secretion SARS-CoV-2 & FLU Antigen (Rapid) - Final Radiology Impression Chest X-Ray 03/06/22 14:55 IMPRESSION: Left lower lobe mass, diaphragm hernia, or infiltrate is visualized. CT chest can better evaluate. Electronically Signed: Adama Olivera MD at 15:11 EST , Chest CTA 03/06/22 15:22 IMPRESSION: 1. No demonstrated pulmonary embolism or arterial dissection. 2. There is a loculated left pleural effusion. Pleural fluid extends through the ribs into the left axillary space. Mild erosive changes of the left lateral seventh and eighth rib overlying the pleural fluid. Differential would include pulmonary abscess versus a neoplastic process. Electronically Signed: Adama Olivera MD at 16:43 EST , ADDENDUM: 03/06/22 5967 IMPRESSION: 1. No demonstrated pulmonary embolism or arterial dissection. 2. There is a loculated left pleural effusion. Pleural fluid extends through the ribs into the left axillary space. Mild erosive changes of the left lateral seventh and eighth rib overlying the pleural fluid. Differential would include pulmonary abscess versus a neoplastic process. N.B. : The above Results were Read Back by Adama Olivera MD to Leoncio Garcia MD, and understanding confirmed on 03/06/2022 16:50:37 (ET). Electronically Signed: Adama Olivera MD at 16:43 EST , Charges/Coding Visit Charges Inpatient E&M: 23050 Init Hosp L2
--- NOTE | 2022-03-06 20:35 | RAD_ITS ---
STUDY: X-RAY CHEST REASON FOR EXAM: Male, 51 years old. CHEST TUBE PLACEMENT TECHNIQUE: XR Chest 1 View COMPARISON: Study done earlier today. FINDINGS: Normal visualized aortic arch and descending thoracic aorta. There are diffuse degenerative changes of the visualized thoracic spine. Normal visualized ribs, clavicles, and shoulders. There is no pneumothorax. Left chest tube is in place. Decrease in size of the left loculated pleural effusion. Overlying minimal subcutaneous emphysema. Normal size heart. Normal mediastinum and librado. Normal visualized pulmonary arteries. There is no demonstrated abnormality of the visualized soft tissue structures of the upper abdomen. RAD/Chest 1 View (Portable) IMPRESSION: There is no pneumothorax. Left chest tube is in place. Decrease in size of the left loculated pleural effusion. Overlying minimal subcutaneous emphysema. Electronically Signed: Adama Olivera MD at 20:49 EST ,
--- NOTE | 2022-03-06 20:45 | PCM.OP.PRO ---
Procedure Report Date of Procedure: 03/06/22 Procedure name: Insertion of left tube thoracostomy (28 Fr) Procedure in detail : After obtaining consent from patient, the procedure was begun following a brief timeout confirming both the patient and the procedure. The insertion site was selected by identifying the intercostal space posteriorly where I was able to see fluid layering within the pleural cavity on ultrasound. On ultrasound guidance I advanced a 22-gauge spinal needle into this fluid and back aspirated confirming purulence. Then the chest wall was then locally anesthetized with 20 mL 1% lidocaine. A scalpel was used to incise the skin with an approximately 4 cm transverse incision. Blunt dissection was used to spread the subcutaneous tissue and underlying intercostal muscle fibers. Then through controlled pressure a Amira clamp was used to access the pleural cavity. This tract was bluntly spread open and the clamp was exchanged for the chest tube as purulent fluid began rushing out of the cavity. Initially in the chest tube was then tied in, was concerned that I did not see titling and then palpated the chest tube above the intercostal muscles outside of the pleural cavity. Therefore the ties were cut and the chest tube was reinserted into the pleural cavity. Again, we encountered an abundance of purulent fluid and this time saw the tube titling. Further, when the patient coughed there was a great expulsion of purulent fluid in the waterseal chamber begin recording a small air leak. Satisfied with this result the chest tube was tied in with 2x2 0 sutures using a Karl sandal technique to secure the tube. In total, there was immediate return of 900 mL of purulence after the tube was connected to the Pleur-evac collection device. (There was, conservatively, and additional 500 mL that escaped collection onto the patient's bedding and our procedure field. The Pleur-evac was connected to wall suction with a chest tube suction of -20 cmH2O. There a small intermittent air leak. The site was dressed with Adaptic gauze and regular gauze to pad the skin against the chest tube and this dressing was taped in place with a mesentery at the distal portion of the chest tube to allow for limited movement. A post-procedure chest x-ray was obtained to confirm tube position. Complications: None EBL: 5 mL Procedures Hospitalists Procedures: 16211 Insertion of Chest Tube
[2022-03-06 22:20] LABS: HIV - WCH Non-Reactive (Nonreactive)
[2022-03-06 22:35] LABS: RET-HE 18.8 pg (30-35); Reticulocyte Count 2.96 % (0.5-1.5)
[2022-03-06 22:46] LABS: Platelet Count 1165 K/mm3 (150-450)
[2022-03-06 22:50] LABS: Ferritin 285 ng/mL (26-388); Iron 16 ug/dL (65-175); Iron Binding Capacity,Total 227 ug/dL (250-450)
--- NOTE | 2022-03-06 22:59 | FLU_PTH ---
PATIENT: KANDIS CLIFTON LOC: MS3 U#:[id number] AGE/SX: 51/M ROOM: [facility] RE03/06/[address]: Dr. Jin Tamayo MD : 1970 BED: 1 DIS: 03/10/2022 SPEC #: [id number] RECD: 03/08/22 07:31 STATUS: SOURamírez REQ #: [id number] SONA: 03/06/22 22:[address]: Nisreen Sterling DEPT: CYTOLOGY RECD BY: Haydee Cerna ENTERED: 03/08/22 07:31 SP TYPE: Fluid OTHR DR: MD Dr. Nisreen Hagan, DO No Primary Care Phys Tissues: Pleural fluid, NOS Procedures: Special Stain Group II Surgery Specimen Level IV Cytospin Fluid Comments: @ Ordering doctor for SSII edited from to @ by RGOOD at 03/08/22 1527 @ Ordering doctor for SUIV edited from to @ by LAWANDA at 03/08/22 1527 @ Ordering doctor for CYSPIN edited from to @ by RGOOD at 03/08/22 1527 @ Submitting doctor edited from to @ by RGOOD at 03/08/22 1527 HEADER OPERATION: Not noted PRE-OP DIAGNOSIS: Left pleural effusion TISSUE SUBMITTED: Pleural fluid for cytology DIAGNOSIS CYTOLOGY Pleural fluid for cytology (cytospin and cell block): Negative for malignant cells. Acute inflammation. AM:liyah 03/09/2022 CYTOLOGY STUDY Slides are reviewed. CYTOLOGY GROSS Received is 30 ml of red bloody cloudy fluid labeled with the patient's name and and designated per the requisition as pleural fluid. Submitted for cytology preparation including cell block. / liyah 03/08/2022 TC:2 CPT: 96624, 81544
[2022-03-06] MEDS: Acetaminophen 500 MG Tablet 1000 MG PO (23:19)
[2022-03-06] MEDS: guaiFENesin 1,200 MG Tablet 1200 MG PO (23:19)
[2022-03-06] MEDS: oxyCODONE 5 MG Tablet PO (23:20)
[2022-03-06] MEDS: Ensure Plus High Protein 120 ML LIQUID PO (23:23)
[2022-03-06] MEDS: 0.9% Saline Lock 10 ML Syringe IV (23:42)
[2022-03-06 23:54] LABS: Protein, Body Fluid 6.4 g/dL (Not Establ.)
[2022-03-07] VITALS (21 sets, daily range): BP systolic 96–107; BP diastolic 58–71; PULSE 85–109; RESP 15–21; TEMP 36.6–36.9; O2SAT 95–100
--- NOTE | 2022-03-07 01:00 | NURSING ---
Ismael from [facility] notified that additional bed bug was found in pt's room after admission. Bed bug placed in specimen cup and given to [facility].
[2022-03-07] MEDS: Vancomycin IV 1,000 MG/200 ML BAG 200 MG IV (01:11)
--- NOTE | 2022-03-07 01:22 | PCM.RX.CS ---
Consult Pharmacy has been consulted to manage selected antiobiotic: Vancomycin Type of Consult: New start Prior Doses of Antibiotics Received/Current Regimen: Medications Vancomycin HCl 750 mg/ Sodium (Chloride) 265 mls @ 250 mls/hr IV Q8H DMITRY Discontinued Medications Vancomycin HCl (Vancomycin) 1,000 mg in 200 mls @ 200 mls/hr IV X1 ONE Stop: 03/06/22 23:29 Last Admin: 03/07/22 01:11 Dose: 200 mls/hr Labs: Sodium 131 mmol/L (136-145) L 03/06/22 14:26 Potassium 3.9 mmol/L (3.5-5.1) 03/06/22 14:26 Chloride 94 mmol/L (98-107) L 03/06/22 14:26 Carbon Dioxide 27.0 mmol/L (21.0-32.0) 03/06/22 14:26 Anion Gap 10 (5-15) 03/06/22 14:26 BUN 10 mg/dL (7-18) 03/06/22 14:26 Creatinine 0.80 mg/dL (0.70-1.30) 03/06/22 14:26 Est GFR (MDRD) Af Amer 130 mL/min (>60) 03/06/22 14:26 Est GFR (MDRD) Non-Af 108 mL/min (>60) 03/06/22 14:26 BUN/Creatinine Ratio 12.5 RATIO (10-20) 03/06/22 14:26 Glucose 107 mg/dL (74-106) H 03/06/22 14:26 Microbiology: Microbiology 03/06/22 20:23 Fluid - Pleural (Lung) Gram Stain - Preliminary 03/06/22 16:52 Urine, Clean Catch Legionella Antigen - Final 03/06/22 16:52 Urine, Clean Catch Streptococcus pneumoniae Antigen (M - Final Streptococcus pneumonia Ag 03/06/22 13:45 Nasal Secretion SARS-CoV-2 & FLU Antigen (Rapid) - Final Weight used for dosin.2 kg Estimated Creatinine Clearance: 102 Goal Trough: 15-20 mcg/mL Pharmacy Plan for Drug Dosing: Pharmacy Service will continue to monitor and adjust dosing as required. Follow-Up Labs: Trough Vancomycin Labs to be done on [date and time ordered]: 03/08/22 @0030
[2022-03-07 01:30] LABS: Cytology, Body Fluid / CSF SEE PATHOLOGY REPORT
[2022-03-07 01:43] LABS: Glucose, Body Fluid 19 mg/dL (40-70); LDH,Body Fluid > 4000 Units/l (Not Establ.)
--- NOTE | 2022-03-07 05:59 | RAD_ITS ---
STUDY: X-RAY CHEST REASON FOR EXAM: Male, 51 years old. PNEUMONIA TECHNIQUE: PA and lateral views of the chest. COMPARISON: March 06, 2022 FINDINGS: 1. Stable left lower lobe chest tube. No visualized pneumothorax. 2. No change in streaky mild interstitial edema throughout the left lower lobe with a small pleural effusion 3. The right lung is clear 4. Cystic emphysematous changes redemonstrated in both lungs 5. Normal heart size 6. Stable mediastinal and osseous structures There is no demonstrated abnormality of the visualized soft tissue structures of the upper abdomen. RAD/Chest PA and Lateral IMPRESSION: * No change in streaky mild interstitial edema throughout the left lower lobe with a small pleural effusion Electronically Signed: Khanh Shelton MD at 8:30 EST ,
[2022-03-07] MEDS: Acetaminophen 500 MG Tablet 1000 MG PO ×3 (06:33→21:13)
[2022-03-07 06:37] LABS: M R Staph aureus DNA By PCR Negative (Negative); Probe Check PASS; Specimen Processing Control PASS
[2022-03-07 07:12] LABS: Absolute Neutrophil Count 21.2 X10^3/uL (2.0-7.7); Basophil# 0.09 X10^3/uL; Basophil% 0.3 % (0-1); Eosinophil# 0.05 X10^3/uL; Eosinophils% 0.2 % (0-5); Hematocrit 25.3 % (40-54); Hemoglobin 7.1 g/dL (13.0-16.5); Lymphocyte % 11.4 % (19-41); Mean Corp Hgb Conc 28.1 g/dL (32-36); Mean Corpuscular Hgb 21.4 pg (27.0-32.0); Mean Corpuscular Volume 76.2 fL (80-94); Mean Platelet Vol. 7.9 fl (6.2-12.0); Monocyte# 1.55 X10^3/uL; Monocyte% 5.9 % (0-10); NRBC Flagged by Analyzer 0 % (0-5); Neutrophil # 21.23 X10^3/uL (2.7-7.7); Neutrophil % 80.6 % (47-70); POSITIVE COUNT YES; POSITIVE DIFFERENTIAL YES; Platelet Count 777 K/mm3 (150-450); RBC Distribution Width CV 17.2 % (11.6-14.6); RBC Distribution Width SD 47.8 fl (35.1-43.9); Red Blood Count 3.32 M/mm3 (4.6-6.2); White Blood Count 26.3 K/mm3 (4.4-11.0)
[2022-03-07 07:21] LABS: Differential Indicated SCAN CRITERIA MET
[2022-03-07] MEDS: Ipratropium/Albuterol Sulfate 3 ML AMPUL.NEB INHALATION ×3 (07:33→19:50)
[2022-03-07 07:46] LABS: Hypochromasia 2+; Microcytosis 2+; Platelet Estimate MOD INC (ADEQ)
[2022-03-07 07:51] LABS: ALB/GLOB Ratio 0.3 RATIO (0.9-2.4); AST(SGOT) 15 U/L (15-37); Alanine Aminotransfer ALT/SGPT 11 U/L (16-61); Albumin, Serum 1.7 g/dL (3.2-5.0); Alkaline Phosphatase 73 U/L (45-117); Anion Gap 6 (5-15); BUN 10 mg/dL (7-18); BUN/Creat Ratio 14.3 RATIO (10-20); Calcium,Total 8.2 mg/dL (8.5-10.1); Chloride 97 mmol/L (98-107); EST Glomerular Filtration Rate 126 mL/min (>60); Est Glom Filt Rate - Afr Amer 153 mL/min (>60); Estimated Creatinine Clearance 110.35 ml/min; Globulin 5.3 g/dL (2.2-4.2); Glucose 166 mg/dL (74-106); Magnesium 2.2 mg/dL (1.6-2.6); Phosphorus 3.3 mg/dL (2.5-4.9); Potassium 3.9 mmol/L (3.5-5.1); Sodium Level 131 mmol/L (136-145); Thyroid Stim Hormone (TSH) 4.52 uIU/mL (0.358-3.74)
[2022-03-07] MEDS: 0.9% Saline Lock 10 ML Syringe IV ×3 (08:26→21:14)
[2022-03-07] MEDS: Furosemide 20 MG/2 ML VIAL IV (08:26)
[2022-03-07] MEDS: Juven (unflavored) Packet 1 PACKET PO ×2 (09:18→17:01)
[2022-03-07] MEDS: Enoxaparin 40 MG/0.4 ML Syringe SC (09:19)
[2022-03-07] MEDS: guaiFENesin 1,200 MG Tablet 1200 MG PO ×2 (09:19→21:13)
[2022-03-07] MEDS: Polyethylene Glycol 3350 17 GM PACKET PO (09:19)
[2022-03-07] MEDS: Ensure Plus High Protein 120 ML LIQUID PO ×3 (09:20→17:02)
--- NOTE | 2022-03-07 11:30 | PCA ---
Addendum entered by Eleanor Monique 03/08/22 11:24: no bed available at this time. Original Note: Call placed to [facility] to check on bed status, they are hoping for a bed by tonight or tomorrow 03/08/2022
--- NOTE | 2022-03-07 12:56 | PN.SURG_ITS ---
Subjective Subjective Patient seen and examined during AM rounds. He is found sitting up in bed watching television. He enthusiastically greets me and states that he is breathing much better than yesterday. He notes that he actually appreciated a difference even yesterday evening following the procedure. Along with this he notes that his cough is better. Is still experiencing mild amount of chest pain at the tube insertion site. Objective Data Objective Data Vital Signs: Vital Signs Temp Pulse Resp BP Pulse Ox O2 Del Method O2 Flow Rate 97.8 F 100 18 97/61 100 Nasal Cannula 4 03/07/22 12:49 03/07/22 12:49 03/07/22 12:49 03/07/22 12:49 03/07/22 12:49 03/07/22 12:49 03/07/22 12:49 Oxygen Flow Rate (L/min) 4 Oxygen Delivery Method Nasal Cannula Weight: 139 lb 5.314 oz Body Mass Index (BMI) 21.1 Intake & Output: Intake and Output for Last 24 Hours 03/05/22 03/06/22 03/07/22 23:59 23:59 23:59 Intake Total 1305 / 1305 / Output Total 600 / 600 Balance 1305 / 1305 1418.00 / 1418.00 Lab / Micro Data Result Diagrams: 03/07/22 06:00 03/07/22 06:00 Labs: Laboratory Results - last 24 hr 03/06/22 14:26: WBC 25.7 H, RBC 4.06 L, Hgb 8.7 L, Hct 31.0 L, MCV 76.4 L, MCH 21.4 L, MCHC 28.1 L, RDW Std Deviation 48.2 H, RDW Coeff of Andrew 17.2 H, Plt Count 1034 H*, MPV 7.6, Immature Gran % (Auto) 2.300 H, Neut % (Auto) 78.7 H, Lymph % (Auto) 13.2 L, [place] % (Auto) 5.1, Eos % (Auto) 0.3, Baso % (Auto) 0.4, Absolute Neuts (auto) 20.2 H, Absolute Lymphs (auto) 3.38, Nucleated RBC % 0, Diff Path Review May foll, Platelet Estimate MKD INC, Hypochromasia 1+, Anisocytosis 2+, Microcytosis 1+ 03/06/22 14:26: Sodium 131 L, Potassium 3.9, Chloride 94 L, Carbon Dioxide 27.0, Anion Gap 10, BUN 10, Creatinine 0.80, Estim Creat Clear Calc 102.56, Est GFR (MDRD) Af Amer 130, Est GFR (MDRD) Non-Af 108, BUN/Creatinine Ratio 12.5, Glucose 107 H, Calcium 9.4 03/06/22 14:26: Lactate Dehydrogenase 180 03/06/22 14:26: Iron 16 L, TIBC 227 L, Iron Saturation 7.0 L, Ferritin 285 03/06/22 14:26: Retic Count 2.96 H, Immature Retic Fraction 22.50 H, Retic Hgb Equivalent 18.8 L 03/06/22 15:00: D-Dimer Quant (PE/DVT) 1.56 H* 03/06/22 15:00: PT 16.6 H, INR 1.4, APTT 36.9 H 03/06/22 16:08: Lactic Acid 1.4 03/06/22 16:52: Urine Color Yellow, Urine Clarity Clear, Urine pH 6.5, Ur Specific [place] 1.010, Urine Protein 15 H, Urine Glucose (UA) Normal, Urine Ketones 50 H, Urine Occult Blood Negative, Urine Nitrite Negative, Urine Bilirubin Negative, Urine Urobilinogen 1 H, Ur Leukocyte Esterase Negative, Urine RBC 0 SEEN, Urine WBC 0 SEEN, Ur Squamous Epith Cells 0-5 SEEN, Urine Bacteria 0 SEEN, Urine Mucus 0 SEEN 03/06/22 20:23: Fluid Glucose 19 L*, Fluid LDH > 4000 03/06/22 20:23: Fluid Total Protein 6.4 03/06/22 21:10: HIV 1&2 Antibody Non-Reactive 03/07/22 01:15: MRSA (PCR) Negative 03/07/22 06:00: WBC 26.3 H, RBC 3.32 L, Hgb 7.1 L, Hct 25.3 L, MCV 76.2 L, MCH 21.4 L, MCHC 28.1 L, RDW Std Deviation 47.8 H, RDW Coeff of Andrew 17.2 H, Plt Count 777 H*, MPV 7.9, Immature Gran % (Auto) 1.600 H, Neut % (Auto) 80.6 H, Ly mph % (Auto) 11.4 L, [place] % (Auto) 5.9, Eos % (Auto) 0.2, Baso % (Auto) 0.3, Absolute Neuts (auto) 21.2 H, Absolute Lymphs (auto) 3.00, Nucleated RBC % 0, Diff Path Review May foll, Platelet Estimate MOD INC, Hypochromasia 2+, Microcytosis 2+ 03/07/22 06:00: Sodium 131 L, Potassium 3.9, Chloride 97 L, Carbon Dioxide 28.0, Anion Gap 6, BUN 10, Creatinine 0.70, Estim Creat Clear Calc 110.35, Est GFR (MDRD) Af Amer 153, Est GFR (MDRD) Non-Af 126, BUN/Creatinine Ratio 14.3, Glucose 166 H, Calcium 8.2 L, Phosphorus 3.3, Magnesium 2.2, Total Bilirubin 0.40, AST 15, ALT 11 L, Alkaline Phosphatase 73, Total Protein 7.0, Albumin 1.7 L, Globulin 5.3 H, Albumin/Globulin Ratio 0.3 L, TSH 4.52 H 03/07/22 08:20: Blood Type AB POSITIVE, Antibody Screen NEGATIVE, Crossmatch See Detail Micro: Microbiology 03/06/22 16:52 Urine, Clean Catch Urine Culture - Preliminary Culture exhibits no growth. 03/06/22 20:23 Fluid - Pleural (Lung) Gram Stain - Preliminary 03/06/22 16:52 Urine, Clean Catch Legionella Antigen - Final 03/06/22 16:52 Urine, Clean Catch Streptococcus pneumoniae Antigen (M - Final Streptococcus pneumonia Ag 03/06/22 13:45 Nasal Secretion SARS-CoV-2 & FLU Antigen (Rapid) - Final Radiography Diagnostic Testing: Radiology Impression Chest X-Ray 03/06/22 14:55 IMPRESSION: Left lower lobe mass, diaphragm hernia, or infiltrate is visualized. CT chest can better evaluate. Electronically Signed: Adama Olivera MD at 15:11 EST , Chest CTA 03/06/22 15:22 IMPRESSION: 1. No demonstrated pulmonary embolism or arterial dissection. 2. There is a loculated left pleural effusion. Pleural fluid extends through the ribs into the left axillary space. Mild erosive changes of the left lateral seventh and eighth rib overlying the pleural fluid. Differential would include pulmonary abscess versus a neoplastic process. Electronically Signed: Adama Olivera MD at 16:43 EST , ADDENDUM: 03/06/22 1657 IMPRESSION: 1. No demonstrated pulmonary embolism or arterial dissection. 2. There is a loculated left pleural effusion. Pleural fluid extends through the ribs into the left axillary space. Mild erosive changes of the left lateral seventh and eighth rib overlying the pleural fluid. Differential would include pulmonary abscess versus a neoplastic process. N.B. : The above Results were Read Back by Adama Olivera MD to Leoncio Garcia MD, and understanding confirmed on 03/06/2022 16:50:37 (ET). Electronically Signed: Adama Olivera MD at 16:43 EST , Chest X-Ray 03/06/22 20:35 IMPRESSION: There is no pneumothorax. Left chest tube is in place. Decrease in size of the left loculated pleural effusion. Overlying minimal subcutaneous emphysema. Electronically Signed: Adama Olivera MD at 20:49 EST , Chest X-Ray 03/07/22 05:59 IMPRESSION: * No change in streaky mild interstitial edema throughout the left lower lobe with a small pleural effusion Electronically Signed: Khanh Shelton MD at 8:30 EST , Physical Exam Const oriented x3 and no apparent distress Chest Chest Narrative: Chest tube in position without kinking. I did not see an air leak on the waterseal chamber presently. There is now an additional 100 mL purulent fluid within the Pleur-evac system and additional fluid within the tubing. Resp normal respiratory effort Assessment & Plan Assessment/Plan (1) Pleural effusion, left: PLAN: This is a 51-year-old male with minimal past medical history aside from smoking and asthma, who presents with a rather acute onset of dyspnea. ER work- up has been remarkable for laboratories that demonstrate anemia, severe leukocytosis, and significant thrombocytosis. Given an elevated D-dimer, CTA of the chest was ordered which identified a large left-sided, loculated pleural effusion versus empyema. Discussions were held around transfer to a tertiary facility with cardiothoracic surgery capabilities, but no [facility] were able to receive patient last evening. Therefore, I agreed to place a left thoracostomy tube in the emergency room. This was done using ultrasound guidance to localize the patient's fluid collection. Patient has had a good response to this procedure with copious drainage of purulent fluid and symptomatic relief of his shortness of breath. Cultures are currently pending on this fluid, but etiology is still unclear. Recommend proceeding with transfer as patient, at a minimum, would likely benefit from use of intrapleural DNase and lytic therapy, but could require decortication as well. Unfortunately none of these procedures are available at our facility. As we await transfer, recommend: ? Follow-up pleural fluid cultures and adjust antibiotics appropriately ? Maintain chest tube on -20 cm water and ensure no kinking of tubing when patient mobilizes (patient could be disconnected from suction for short periods of time given the absence of an air leak on today's exam) ? Surgery to continue to follow for chest tube management Charges/Coding Visit Charges Inpatient E&M: 64165 Subs Hosp L2
--- NOTE | 2022-03-07 15:55 | PN.HOSP_ITS ---
Subjective Subjective Follow-up on acute empyema/hypoxia: Patient was seen and examined. He denied any new complaint. He is on 4 L of o xygen. Awaiting transfer to [facility]. Denies any fever or chills. Bedbugs were found on patient in the ED and also after admission. Objective Data Objective Data Vital Signs: Vital Signs Temp Pulse Resp BP Pulse Ox O2 Del Method O2 Flow Rate 98.4 F 107 H 18 98/60 95 Nasal Cannula 2 03/07/22 14:52 03/07/22 15:44 03/07/22 14:52 03/07/22 14:52 03/07/22 14:52 03/07/22 14:52 03/07/22 14:52 Oxygen Flow Rate (L/min) 2 Oxygen Delivery Method Nasal Cannula Weight: 63.2 kg Body Mass Index (BMI) 21.1 Intake & Output: Intake and Output for Last 24 Hours 03/05/22 03/06/22 03/07/22 23:59 23:59 23:59 Intake Total 1305 / 1305 2688.00 / 2688.00 Output Total 900 / 900 Balance 1305 / 1305 1788.00 / 1788.00 Lab / Micro Data Result Diagrams: 03/07/22 06:00 03/07/22 06:00 Labs: Laboratory Results - last 24 hr 03/06/22 14:26: Lactate Dehydrogenase 180 03/06/22 14:26: Iron 16 L, TIBC 227 L, Iron Saturation 7.0 L, Ferritin 285 03/06/22 14:26: Retic Count 2.96 H, Immature Retic Fraction 22.50 H, Retic Hgb Equivalent 18.8 L 03/06/22 15:00: PT 16.6 H, INR 1.4, APTT 36.9 H 03/06/22 16:08: Lactic Acid 1.4 03/06/22 16:52: Urine Color Yellow, Urine Clarity Clear, Urine pH 6.5, Ur Specific [place] 1.010, Urine Protein 15 H, Urine Glucose (UA) Normal, Urine Ketones 50 H, Urine Occult Blood Negative, Urine Nitrite Negative, Urine Bilirubin Negative, Urine Urobilinogen 1 H, Ur Leukocyte Esterase Negative, Urine RBC 0 SEEN, Urine WBC 0 SEEN, Ur Squamous Epith Cells 0-5 SEEN, Urine Bacteria 0 SEEN, Urine Mucus 0 SEEN 03/06/22 20:23: Fluid Glucose 19 L*, Fluid LDH > 4000 03/06/22 20:23: Fluid Total Protein 6.4 03/06/22 21:10: HIV 1&2 Antibody Non-Reactive 03/07/22 01:15: MRSA (PCR) Negative 03/07/22 06:00: WBC 26.3 H, RBC 3.32 L, Hgb 7.1 L, Hct 25.3 L, MCV 76.2 L, MCH 21.4 L, MCHC 28.1 L, RDW Std Deviation 47.8 H, RDW Coeff of Andrew 17.2 H, Plt Count 777 H*, MPV 7.9, Immature Gran % (Auto) 1.600 H, Neut % (Auto) 80.6 H, Lymph % (Auto) 11.4 L, [place] % (Auto) 5.9, Eos % (Auto) 0.2, Baso % (Auto) 0.3, Absolute Neuts (auto) 21.2 H, Absolute Lymphs (auto) 3.00, Nucleated RBC % 0, Diff Path Review June, Platelet Estimate MOD INC, Hypochromasia 2+, Microcytosis 2+ 03/07/22 06:00: Sodium 131 L, Potassium 3.9, Chloride 97 L, Carbon Dioxide 28.0, Anion Gap 6, BUN 10, Creatinine 0.70, Estim Creat Clear Calc 110.35, Est GFR (MDRD) Af Amer 153, Est GFR (MDRD) Non-Af 126, BUN/Creatinine Ratio 14.3, Glucose 166 H, Calcium 8.2 L, Phosphorus 3.3, Magnesium 2.2, Total Bilirubin 0.40, AST 15, ALT 11 L, Alkaline Phosphatase 73, Total Protein 7.0, Albumin 1.7 L, Globulin 5.3 H, Albumin/Globulin Ratio 0.3 L, TSH 4.52 H 03/07/22 08:20: Blood Type AB POSITIVE, Antibody Screen NEGATIVE, Crossmatch See Detail Micro: Microbiology 03/06/22 20:23 Fluid - Pleural (Lung) Gram Stain - Final 03/06/22 16:52 Urine, Clean Catch Urine Culture - Preliminary Culture exhibits no growth. 03/06/22 16:52 Urine, Clean Catch Legionella Antigen - Final 03/06/22 16:52 Urine, Clean Catch Streptococcus pneumoniae Antigen (M - Final Streptococcus pneumonia Ag 03/06/22 13:45 Nasal Secretion SARS-CoV-2 & FLU Antigen (Rapid) - Final Radiography Diagnostic Testing: Radiology Impression Chest CTA 03/06/22 15:22 IMPRESSION: 1. No demonstrated pulmonary embolism or arterial dissection. 2. There is a loculated left pleural effusion. Pleural fluid extends through the ribs into the left axillary space. Mild erosive changes of the left lateral seventh and eighth rib overlying the pleural fluid. Differential would include pulmonary abscess versus a neoplastic process. Electronically Signed: Adama Olivera MD at 16:43 EST , ADDENDUM: 03/06/22 1657 IMPRESSION: 1. No demonstrated pulmonary embolism or arterial dissection. 2. There is a loculated left pleural effusion. Pleural fluid extends through the ribs into the left axillary space. Mild erosive changes of the left lateral seventh and eighth rib overlying the pleural fluid. Differential would include pulmonary abscess versus a neoplastic process. N.B. : The above Results were Read Back by Adama Olivera MD to Leoncio Garcia MD, and understanding confirmed on 03/06/2022 16:50:37 (ET). Electronically Signed: Adama Olivera MD at 16:43 EST , Chest X-Ray 03/06/22 20:35 IMPRESSION: There is no pneumothorax. Left chest tube is in place. Decrease in size of the left loculated pleural effusion. Overlying minimal subcutaneous emphysema. Electronically Signed: Adama Olivera MD at 20:49 EST , Chest X-Ray 03/07/22 05:59 IMPRESSION: * No change in streaky mild interstitial edema throughout the left lower lobe with a small pleural effusion Electronically Signed: Khanh Shelton MD at 8:30 EST Reading Location ID and State: [facility] / [place] , Service support , Physical Exam Narrative Physical exam: General: Alert, Oriented x3, Cooperative, on 4 L oxygen, appears very fit HEENT: Atraumatic Oral: Moist Mucosa Neck: Supple Lungs: Diminished to auscultation to auscultation Cardiovascular: HS I+II, regular, no murmurs Abdomen: Bowel Sounds Present, Soft, Non Tender Extremities: No edema Skin: No rashes, No breakdown Neurological: Grossly intact Psych/Mental Status: Appropriate Assessment & Plan Assessment/Plan (1) Microcytic anemia: (2) Shortness of breath: (3) Pleural effusion, left: (4) Thrombophilia: (5) Leukocytosis: PLAN: Plan 1. Acute large pleural effusion/acute empyema, status left sided thoracocentesis/thoracostomy tube Fluid was purulent; fluid cultures are pending Admitting chest x-ray showed left lobe mass, diaphragm elmo or infiltrate. CTA of the chest shows loculated left pleural effusion with pleural fluid ext ends to the rib into the left axillary space. HIV status is negative. WBC count increased to 26.3 Urine streptococcal antigen positive. General surgery following; continue on IV vancomycin and Zosyn Await on transfer to [facility] 2. Anemia, iron deficient, hemoglobin is 7.1, dropped from 8.7 Iron stores shows iron saturation of 8% We will transfuse 1 unit of packed RBCs as well as give IV Venofer x1. We will hold off on giving further Venofer in the light of empyema 3. Thrombocytosis, reactive, improved to 777 from 1034 We will continue to trend 4. 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 Nicotine dependence, advised to quit, declines replacement 6. DVT per Lasix?Lovenox subcu Charges/Coding Visit Charges Inpatient E&M: 23947 Subs Hosp L2
[2022-03-07] MEDS: oxyCODONE 5 MG Tablet PO (21:13)
[2022-03-08] VITALS (13 sets, daily range): BP systolic 95–110; BP diastolic 60–67; PULSE 74–109; RESP 14–22; TEMP 36.4–36.8; O2SAT 95–100
[2022-03-08] MEDS: Ipratropium/Albuterol Sulfate 3 ML AMPUL.NEB INHALATION ×4 (01:10→19:52)
[2022-03-08 01:17] LABS: Vancomycin, Trough Level 11.8 ug/mL (5.0-15.0)
--- NOTE | 2022-03-08 01:42 | PCM.RX.CS ---
Consult Pharmacy has been consulted to manage selected antiobiotic: Vancomycin Type of Consult: Follow-up Prior Doses of Antibiotics Received/Current Regimen: Medications Vancomycin HCl 1,250 mg/ (Sodium Chloride) 275 mls @ 167 mls/hr IV Q8H DMITRY Discontinued Medications Vancomycin HCl 750 mg/ Sodium (Chloride) 265 mls @ 250 mls/hr IV Q8H DMITRY Last Admin: 03/08/22 01:38 Dose: Not Given Labs: Sodium 131 mmol/L (136-145) L 03/07/22 06:00 Potassium 3.9 mmol/L (3.5-5.1) 03/07/22 06:00 Chloride 97 mmol/L (98-107) L 03/07/22 06:00 Carbon Dioxide 28.0 mmol/L (21.0-32.0) 03/07/22 06:00 Anion Gap 6 (5-15) 03/07/22 06:00 BUN 10 mg/dL (7-18) 03/07/22 06:00 Creatinine 0.70 mg/dL (0.70-1.30) 03/07/22 06:00 Est GFR (MDRD) Af Amer 153 mL/min (>60) 03/07/22 06:00 Est GFR (MDRD) Non-Af 126 mL/min (>60) 03/07/22 06:00 BUN/Creatinine Ratio 14.3 RATIO (10-20) 03/07/22 06:00 Glucose 166 mg/dL (74-106) H 03/07/22 06:00 Vancomycin Trough 11.8 ug/mL (5.0-15.0) 03/08/22 00:05 Microbiology: Microbiology 03/06/22 20:23 Fluid - Pleural (Lung) Gram Stain - Final 03/06/22 16:52 Urine, Clean Catch Urine Culture - Preliminary Culture exhibits no growth. 03/06/22 16:52 Urine, Clean Catch Legionella Antigen - Final 03/06/22 16:52 Urine, Clean Catch Streptococcus pneumoniae Antigen (M - Final Streptococcus pneumonia Ag 03/06/22 13:45 Nasal Secretion SARS-CoV-2 & FLU Antigen (Rapid) - Final Weight used for dosin.2 kg Estimated Creatinine Clearance: 110 Goal Trough: 15-20 mcg/mL Pharmacy Plan for Drug Dosing: Vancomycin trough level of 11.8 was below the target range of 15-20. Will increase dose to 1250mg q8h, which, per dosing calculator, should give an estimated trough of 18.4. Another level will be drawn prior to fourth dose of new regimen. Pharmacy Service will continue to monitor and adjust dosing as required. Follow-Up Labs: Trough Vancomycin Labs to be done on [date and time ordered]: 03/09/22 @0137
[2022-03-08] MEDS: oxyCODONE 5 MG Tablet PO ×2 (02:54→22:58)
--- NOTE | 2022-03-08 05:00 | RAD_ITS ---
STUDY: X-RAY CHEST REASON FOR EXAM: Male, 51 years old. Chest tube TECHNIQUE: PA and lateral views of the chest. COMPARISON: Comparison is made with prior study dated February 2022. FINDINGS: A left-sided chest tube is seen in the left lower hemithorax. Stable position. Subcutaneous emphysema is seen overlying the left lateral chest wall. Persistent blunting of the left concerning angle with underlying atelectasis. There is no demonstrated pleural abnormality. Normal size heart. Normal mediastinum and librado. Normal visualized pulmonary arteries. Normal visualized aortic arch and descending thoracic aorta. Normal visualized thoracic spine. Normal visualized ribs, clavicles, and shoulders. There is no demonstrated abnormality of the visualized soft tissue structures of the upper abdomen. RAD/Chest PA and Lateral IMPRESSION: Stable examination. Electronically Signed: Marco A Garay MD at 10:57 EST ,
[2022-03-08] MEDS: 0.9% Saline Lock 10 ML Syringe IV ×2 (06:21→12:04)
[2022-03-08] MEDS: Acetaminophen 500 MG Tablet 1000 MG PO ×3 (06:21→22:58)
--- NOTE | 2022-03-08 08:38 | PN.SURG_ITS ---
Subjective Subjective Patient found resting in bed watching television. He continues to confirm improved symptoms with decreased shortness of breath. He states that he has been coughing more today and that this might be an explanation for why his chest tube output is now more bloody in character. He states that he is having significant pain in his chest insertion site with coughing. He denies hearing any recent updates on his acceptance and transfer to outside facility. Objective Data Objective Data Vital Signs: Vital Signs Temp Pulse Resp BP Pulse Ox O2 Del Method O2 Flow Rate 98 F 86 16 100/60 97 Nasal Cannula 2 03/08/22 04:00 03/08/22 06:24 03/08/22 04:00 03/08/22 04:00 03/08/22 06:24 03/08/22 06:24 03/08/22 06:24 Oxygen Flow Rate (L/min) 2 Oxygen Delivery Method Nasal Cannula Weight: 139 lb 5.314 oz Body Mass Index (BMI) 21.1 Intake & Output: Intake and Output for Last 24 Hours 03/06/22 03/07/22 03/08/22 23:59 23:59 23:59 Intake Total 1305 / 1305 3753.00 / 3753.00 325 / 325 Output Total 1000 / 1350 650 / 650 Balance 1305 / 1305 2753.00 / 2403.00 -325 / -325 Lab / Micro Data Result Diagrams: 03/07/22 06:00 03/07/22 06:00 Labs: Laboratory Results - last 24 hr 03/07/22 08:20: Blood Type AB POSITIVE, Antibody Screen NEGATIVE, Crossmatch See Detail 03/08/22 00:05: Vancomycin Trough 11.8 Micro: Microbiology 03/06/22 20:23 Fluid - Pleural (Lung) Gram Stain - Final 03/06/22 20:23 Fluid - Pleural (Lung) Body Fluid Culture - Final Culture exhibits no growth. 03/06/22 16:52 Urine, Clean Catch Urine Culture - Final Mixed Gram Positive Organisms 03/06/22 16:52 Urine, Clean Catch Legionella Antigen - Final 03/06/22 16:52 Urine, Clean Catch Streptococcus pneumoniae Antigen (M - Final Streptococcus pneumonia Ag 03/06/22 13:45 Nasal Secretion SARS-CoV-2 & FLU Antigen (Rapid) - Final Physical Exam Const oriented x3 and no apparent distress Chest Chest Narrative: Chest tube in position without kinking. No air leak in waterseal chamber. Additional 350 mL purulent fluid mixed with thin bloody output within the Pleur- evac system. Resp normal respiratory effort Assessment & Plan Assessment/Plan (1) Pleural effusion, left: PLAN: This is a 51-year-old male with minimal past medical history aside from smoking and asthma, who presents with a rather acute onset of dyspnea. ER work- up has been remarkable for laboratories that demonstrate anemia, severe leukocyt osis, and significant thrombocytosis. Given an elevated D-dimer, CTA of the chest was ordered which identified a large left-sided, loculated pleural effusion versus empyema. Discussions were held around transfer to a tertiary facility with cardiothoracic surgery capabilities, but no [facility] were able to receive patient directly from our emergency room. Therefore, I agreed to place a left thoracostomy tube in the emergency room. This was done using ultrasound guidance to localize the patient's fluid collection. Patient confirms further symptomatic improvement with decreased respiratory effort. Does remark that he is coughing more today. I have encouraged him to use a splinting technique when he does so. Cultures are currently pending on this fluid and demonstrate presence of an alphahemolytic organism (elsewhere in his urine culture he is growing strep pneumoniae). Recommend proceeding with transfer as patient, at a minimum, would likely benefit from use of intrapleural DNase and lytic therapy, but could require decortication as well. Unfortunately none of these procedures are available at our facility. As we await transfer, recommend: ? Follow-up pleural fluid cultures and adjust antibiotics appropriately ? Maintain chest tube on -20 cm water and ensure no kinking of tubing when patient mobilizes (patient could be disconnected from suction for short periods of time given the absence of an air leak on today's exam) ? Patient encouraged to use splinting technique with coughing. ? No repeat CT of chest ordered given high probability that this imaging would be performed at receiving facility and we do not plan to treat further ? Surgery to continue to follow for chest tube management Charges/Coding Visit Charges Inpatient E&M: 46991 Subs Hosp L2
[2022-03-08] MEDS: Enoxaparin 40 MG/0.4 ML Syringe SC (09:23)
[2022-03-08] MEDS: guaiFENesin 1,200 MG Tablet 1200 MG PO ×2 (09:23→22:58)
[2022-03-08] MEDS: Ensure Plus High Protein 120 ML LIQUID PO ×4 (09:23→23:00)
[2022-03-08] MEDS: Polyethylene Glycol 3350 17 GM PACKET PO (09:23)
[2022-03-08] MEDS: Juven (unflavored) Packet 1 PACKET PO (09:23)
--- NOTE | 2022-03-08 09:23 | PCM.PN.HOSP ---
Subjective Subjective Follow-up for left lung empyema status post chest tube insertion. Objective Data Objective Data Vital Signs: Vital Signs Temp Pulse Resp BP Pulse Ox O2 Del Method O2 Flow Rate 97.6 F L 100 18 97/63 18 Nasal Cannula 3 03/08/22 09:14 03/08/22 09:16 03/08/22 09:14 03/08/22 09:14 03/08/22 09:14 03/08/22 09:16 03/08/22 09:16 Oxygen Flow Rate (L/min) 3 Oxygen Delivery Method Nasal Cannula Weight: 139 lb 5.314 oz Body Mass Index (BMI) 21.1 Intake & Output: Intake and Output for Last 24 Hours 03/06/22 03/07/22 03/08/22 23:59 23:59 23:59 Intake Total 1305 / 1305 3753.00 / 3753.00 325 / 325 Output Total 1000 / 1350 650 / 650 Balance 1305 / 1305 2753.00 / 2403.00 -325 / -325 Lab / Micro Data Result Diagrams: 03/07/22 06:00 03/07/22 06:00 Labs: Laboratory Results - last 24 hr 03/07/22 08:20: Blood Type AB POSITIVE, Antibody Screen NEGATIVE, Crossmatch See Detail 03/08/22 00:05: Vancomycin Trough 11.8 Micro: Microbiology 03/06/22 20:23 Fluid - Pleural (Lung) Gram Stain - Final 03/06/22 20:23 Fluid - Pleural (Lung) Body Fluid Culture - Final Culture exhibits no growth. 03/06/22 20:23 Fluid - Pleural (Lung) Anaerobic Culture - Preliminary No growth in 48 hours. 03/06/22 16:52 Urine, Clean Catch Urine Culture - Final Mixed Gram Positive Organisms 03/06/22 16:52 Urine, Clean Catch Legionella Antigen - Final 03/06/22 16:52 Urine, Clean Catch Streptococcus pneumoniae Antigen (M - Final Streptococcus pneumonia Ag 03/06/22 13:45 Nasal Secretion SARS-CoV-2 & FLU Antigen (Rapid) - Final Physical Exam Narrative Patient is a chronic smoker started at the age of 14-15, at time he was 2 packs/day but recently down to quarter pack a day before admission. Physical exam General: Alert, Oriented x3, Cooperative, thin built. HEENT: Atraumatic, PERRLA, EOMI, Normocephalic Oral: Oral mucosa dry. No Gingival or Mucosal Lesions/ Ulcerations Neck: Supple, No JVD, Negative Carotid Bruits Lungs: Air entry diminished in left lung base. Chest tube present. No airleak. No crepitations. On 3 L of oxygen. Cardiovascular: Regular rate, Regular Rhythm, Normal S1, Normal S2, No murmurs Abdomen: Bowel Sounds Present, Soft, Non Tender, Non-Distended : No renal angle tenderness. No suprapubic tenderness. Extremities: No edema, Capillary Refill Less than 3 Seconds Skin: No rashes, No breakdown Musculoskeletal: ROM intact. No Tenderness to Palpation of Joints or Extremities Neurological: Cranial nerves II-XII grossly intact, DTR 2+/4 and Symmetrical Psych/Mental Status: Normal Affect, Appropriate. Assessment & Plan Assessment/Plan (1) Microcytic anemia: (2) Shortness of breath: (3) Pleural effusion, left: (4) Thrombophilia: (5) Leukocytosis: PLAN: Plan 1. Acute large pleural effusion/acute empyema, status left sided thoracocentesis/thoracostomy tube Fluid was purulent; fluid cultures are pending Admitting chest x-ray showed left lobe mass, diaphragm elmo or infiltrate. CTA of the chest shows loculated left pleural effusion with pleural fluid extends to the rib into the left axillary space. 03/08: Discussed with nursing staff. Patient might go tomorrow morning. Accepted in [facility]. HIV status is negative. WBC count increased to 26.3 Urine streptococcal antigen positive. General surgery following; continue on IV vancomycin and Zosyn 2. Severe anemia, iron deficient, hemoglobin is 7.1, dropped from 8.7 Iron stores shows iron saturation of 8% We will transfuse 1 unit of packed RBCs as well as give IV Venofer x1. Hemoglobin down to 7.1%. iron infusion ordered 3. Thrombocytosis, reactive, improved to 777 from 1034 We will continue to trend 4. severe protein calorie malnutrition, conveyor technician consulted, continue on supplements, 5. Nicotine dependence, advised to quit, declines replacement 6. DVT per Lasix? Lovenox discontinued hemoglobin 7.1. Bilateral SCDs. Total time of the visit including total time spent in counseling or coordination of care, (more than 50% of the total time, spent in obtaining medical information from nurses and other ancillary care providers,explaining to the patient about labs, imaging, diagnosis and management of active complex medical conditions), medical record review, review of labs and imaging is 40 minutes. Charges/Coding Visit Charges Inpatient E&M: 01013 Subs Hosp L2
--- NOTE | 2022-03-08 10:43 | CASEMGMT ---
RN CM assessment not completed at this time, pt plans to trf to [facility]. Per charge nurse, bed potentially available this evening or tomorrow.
--- NOTE | 2022-03-08 14:33 | NURSING ---
Dr martinez notified pt vss trigger sepsis alert.
--- NOTE | 2022-03-08 15:36 | NURSING ---
no sepsis alert per Dr. Tamayo.
[2022-03-09] VITALS (9 sets, daily range): BP systolic 102–126; BP diastolic 62–75; PULSE 94–108; RESP 16–20; TEMP 36.6–37.1; O2SAT 94–99
[2022-03-09] MEDS: Ipratropium/Albuterol Sulfate 3 ML AMPUL.NEB INHALATION ×4 (01:13→19:20)
[2022-03-09 02:08] LABS: Basophil# 0.03 X10^3/uL; Eosinophil# 0.23 X10^3/uL; Hematocrit 26.2 % (40-54); Hemoglobin 7.4 g/dL (13.0-16.5); Mean Corp Hgb Conc 28.2 g/dL (32-36); Mean Corpuscular Hgb 22.4 pg (27.0-32.0); Mean Corpuscular Volume 79.4 fL (80-94); Monocyte# 0.94 X10^3/uL; NRBC Flagged by Analyzer 0 % (0-5); POSITIVE MORPHOLOGY YES; Platelet Count 718 K/mm3 (150-450); RBC Distribution Width CV 17.6 % (11.6-14.6); RBC Distribution Width SD 50.8 fl (35.1-43.9)
[2022-03-09 02:11] LABS: Differential Indicated SCAN CRITERIA MET
[2022-03-09 02:26] LABS: Anion Gap 2 (5-15); BUN 14 mg/dL (7-18); BUN/Creat Ratio 25.6 RATIO (10-20); Calcium,Total 8.2 mg/dL (8.5-10.1); Chloride 104 mmol/L (98-107); Creatinine, Serum 0.55 mg/dL (0.70-1.30); EST Glomerular Filtration Rate 167 mL/min (>60); Est Glom Filt Rate - Afr Amer 202 mL/min (>60); Estimated Creatinine Clearance 140.44 ml/min; Glucose 139 mg/dL (74-106); Potassium 3.9 mmol/L (3.5-5.1); Sodium Level 136 mmol/L (136-145)
[2022-03-09 02:30] LABS: Scan Smear per Review Criteria MANUAL DIFF
[2022-03-09 02:33] LABS: Neutrophil-Segmented 65 % (47-70); Total Cells Counted 100 (MANUAL DIFF)
[2022-03-09 02:34] LABS: Eosinophil 2 % (0-5); Lymphocyte 28 % (19-41); Metamyelocyte 2 % (0-1); Monocyte 3 % (0-10)
[2022-03-09 02:35] LABS: Vancomycin, Trough Level 18.6 ug/mL (5.0-15.0)
[2022-03-09 02:36] LABS: Absolute Neutrophil Count 13.4 X10^3/uL (2.0-7.7); Neutrophil # 13.41 X10^3/uL (2.7-7.7)
[2022-03-09 02:37] LABS: Platelet Estimate MKD INC (ADEQ)
[2022-03-09 02:38] LABS: Polychromasia RARE
--- NOTE | 2022-03-09 03:03 | PHA.PHARE_ITS ---
Consult Pharmacy has been consulted to manage selected antiobiotic: Vancomycin Type of Consult: Follow-up Prior Doses of Antibiotics Received/Current Regimen: Medications Vancomycin HCl 1,250 mg/ (Sodium Chloride) 275 mls @ 167 mls/hr IV Q8H DMITRY Last Admin: 03/09/22 02:42 Dose: 167 mls/hr Labs: Sodium 136 mmol/L (136-145) 03/09/22 01:52 Potassium 3.9 mmol/L (3.5-5.1) 03/09/22 01:52 Chloride 104 mmol/L (98-107) 03/09/22 01:52 Carbon Dioxide 30.0 mmol/L (21.0-32.0) 03/09/22 01:52 Anion Gap 2 (5-15) L 03/09/22 01:52 BUN 14 mg/dL (7-18) 03/09/22 01:52 Creatinine 0.55 mg/dL (0.70-1.30) L 03/09/22 01:52 Est GFR (MDRD) Af Amer 202 mL/min (>60) 03/09/22 01:52 Est GFR (MDRD) Non-Af 167 mL/min (>60) 03/09/22 01:52 BUN/Creatinine Ratio 25.6 RATIO (10-20) H 03/09/22 01:52 Glucose 139 mg/dL (74-106) H 03/09/22 01:52 Vancomycin Trough 18.6 ug/mL (5.0-15.0) H 03/09/22 01:52 Microbiology: Microbiology 03/06/22 20:23 Fluid - Pleural (Lung) Gram Stain - Final 03/06/22 20:23 Fluid - Pleural (Lung) Body Fluid Culture - Preliminary Alpha hemolytic organism 03/06/22 20:23 Fluid - Pleural (Lung) Anaerobic Culture - Preliminary No growth in 48 hours. 03/06/22 16:52 Urine, Clean Catch Urine Culture - Final Mixed Gram Positive Organisms 03/06/22 16:52 Urine, Clean Catch Legionella Antigen - Final 03/06/22 16:52 Urine, Clean Catch Streptococcus pneumoniae Antigen (M - Lauren l Streptococcus pneumonia Ag 03/06/22 13:45 Nasal Secretion SARS-CoV-2 & FLU Antigen (Rapid) - Final Weight used for dosin.2 kg Estimated Creatinine Clearance: 140 Goal Trough: 15-20 mcg/mL Pharmacy Plan for Drug Dosing: Vancomycin trough level, drawn 8.1 hours post-dose, was 18.6. This is within the target range of 15-20, so current dosing will be continued. Another trough will be drawn in two days. Pharmacy Service will continue to monitor and adjust dosing as required. Follow-Up Labs: Trough Vancomycin Labs to be done on [date and time ordered]: 03/11/22 @1217
[2022-03-09] MEDS: Acetaminophen 500 MG Tablet 1000 MG PO ×3 (05:22→20:54)
[2022-03-09] MEDS: Ensure Plus High Protein 120 ML LIQUID PO ×4 (10:16→20:54)
[2022-03-09] MEDS: Polyethylene Glycol 3350 17 GM PACKET PO (10:17)
[2022-03-09] MEDS: guaiFENesin 1,200 MG Tablet 1200 MG PO ×2 (10:17→20:54)
[2022-03-09 12:01] LABS: Pathologist Review Reviewed
[2022-03-09 12:04] LABS: Pathologist Review Reviewed
--- NOTE | 2022-03-09 12:13 | PCM.PN.SRG ---
Subjective Subjective Patient seen and examined during AM rounds. He denies any significant changes from yesterday. Further, he denies being made aware of any updates to his transfer status. He continues to report improvements of his shortness of breath symptoms. When discussing his anemia he denies any bowel movement since his admission and therefore denies any signs of occult blood loss. Objective Data Objective Data Vital Signs: Vital Signs Temp Pulse Resp BP Pulse Ox O2 Del Method O2 Flow Rate 98.8 F 94 16 126/75 H 99 Room Air 2 03/09/22 10:10 03/09/22 10:10 03/09/22 10:10 03/09/22 10:10 03/09/22 10:10 03/09/22 10:22 03/09/22 10:10 Oxygen Flow Rate (L/min) 2 Oxygen Delivery Method Room Air Weight: 139 lb 5.314 oz Body Mass Index (BMI) 21.1 Intake & Output: Intake and Output for Last 24 Hours 03/07/22 03/08/22 03/09/22 23:59 23:59 23:59 Intake Total 3753.00 / 3753.00 1245 / 1245 2200 / 2200 Output Total 1000 / 1350 1225 / 1225 1600 / 1600 Balance 2753.00 / 2403.00 600 / 600 Lab / Micro Data Result Diagrams: 03/09/22 01:52 03/09/22 01:52 Labs: Laboratory Results - last 24 hr 03/06/22 14:26: Diff Path Review Reviewed 03/07/22 06:00: Diff Path Review Reviewed 03/09/22 01:52: Vancomycin Trough 18.6 H 03/09/22 01:52: WBC 20.0 H, RBC 3.30 L, Hgb 7.4 L, Hct 26.2 L, MCV 79.4 L, MCH 22.4 L, MCHC 28.2 L, RDW Std Deviation 50.8 H, RDW Coeff of Andrew 17.6 H, Plt Count 718 H, MPV 8.0, Immature Gran % (Auto) CANDY SUPERVISOR, Neut % (Auto) CANDY SUPERVISOR, Lymph % (Auto) CANDY SUPERVISOR, [place]bert % (Auto) CANDY SUPERVISOR, Eos % (Auto) CANDY SUPERVISOR, Baso % (Auto) CANDY SUPERVISOR, Absolute Neuts (auto) 13.4 H, Absolute Lymphs (auto) 0.60 L, Total Counted 100, Neutrophils % (Manual) 65, Lymphocytes % (Manual) 28, Monocytes % (Manual) 3, Eosinophils % (Manual) 2, Metamyelocytes % 2 H, Nucleated RBC % 0, Diff Path Review May foll, Platelet Estimate [employer], Polychromasia RARE 03/09/22 01:52: Sodium 136, Potassium 3.9, Chloride 104, Carbon Dioxide 30.0, Anion Gap 2 L, BUN 14, Creatinine 0.55 L, Estim Creat Clear Calc 140.44, Est GFR (MDRD) Af Amer 202, Est GFR (MDRD) Non-Af 167, BUN/Creatinine Ratio 25.6 H, Glucose 139 H, Calcium 8.2 L Micro: Microbiology 03/06/22 16:18 Blood Culture (Wb) - Anticubital Right Blood Culture - Preliminary No growth in 48 hours. 03/06/22 16:08 Blood Culture (Wb) - Anticubital Left Blood Culture - Preliminary No growth in 48 hours. 03/06/22 20:23 Fluid - Pleural (Lung) Gram Stain - Final 03/06/22 20:23 Fluid - Pleural (Lung) Body Fluid Culture - Preliminary Alpha hemolytic organism 03/06/22 20:23 Fluid - Pleural (Lung) Anaerobic Culture - Preliminary No growth in 48 hours. 03/06/22 16:52 Urine, Clean Catch Urine Culture - Final Mixed Gram Positive Organisms 03/06/22 16:52 Urine, Clean Catch Legionella Antigen - Final 03/06/22 16:52 Urine, Clean Catch Streptococcus pneumoniae Antigen (M - Final Streptococcus pneumonia Ag 03/06/22 13:45 Nasal Secretion SARS-CoV-2 & FLU Antigen (Rapid) - Final Physical Exam Const oriented x3 and no apparent distress Chest Chest Narrative: Chest tube in position without kinking. Improved exam for subcu emphysema. No air leak in waterseal chamber. Additional 100 mL purulent fluid mixed with thin bloody output within the Pleur-evac system. Resp normal respiratory effort Assessment & Plan Assessment/Plan (1) Pleural effusion, left: PLAN: This is a 51-year-old male with minimal past medical history aside from smoking and asthma, who presents with a rather acute onset of dyspnea. ER work-up has been remarkable for laboratories that demonstrate anemia, severe leukocytosis, and significant thrombocytosis. Given an elevated D-dimer, CTA of the chest was ordered which identified a large left-sided, loculated pleural effusion versus empyema. Discussions were held around transfer to a tertiary facility with cardiothoracic surgery capabilities, but no [facility] were able to receive patient directly from our emergency room. Therefore, I agreed to place a left thoracostomy tube in the emergency room. This was done using ultrasound guidance to localize the patient's fluid collection. Patient confirms further symptomatic improvement with decreased respiratory effort. Cultures remain in pending status on this fluid and demonstrate presence of an alpha hemolytic organism. Recommend proceeding with transfer as patient, at a minimum, would likely benefit from use of intrapleural DNase and lytic therapy, but could require decortication as well. Unfortunately none of these procedures are available at our facility. As we await transfer, recommend: ? Follow-up pleural fluid cultures and adjust antibiotics appropriately ? Maintain chest tube on -20 cm water and ensure no kinking of tubing when patient mobilizes (patient could be disconnected from suction for short periods of time given the absence of an air leak on today's exam) ? Patient encouraged to use splinting technique with coughing. ? No repeat CT of chest ordered given high probability that this imaging would be performed at receiving facility and we do not plan to treat further ? Surgery to continue to follow for chest tube management Charges/Coding Visit Charges Inpatient E&M: 64605 Subs Hosp L2
--- NOTE | 2022-03-09 15:00 | PCM.PN.HOSP ---
Subjective Subjective Follow-up for complicated left lower lung empyema. Objective Data Objective Data Vital Signs: Vital Signs Temp Pulse Resp BP Pulse Ox O2 Del Method O2 Flow Rate 98.8 F 101 H 18 126/75 H 99 Room Air 2 03/09/22 10:10 03/09/22 13:27 03/09/22 13:27 03/09/22 10:10 03/09/22 10:10 03/09/22 10:22 03/09/22 10:10 Oxygen Flow Rate (L/min) 2 Oxygen Delivery Method Room Air Weight: 139 lb 5.314 oz Body Mass Index (BMI) 21.1 Intake & Output: Intake and Output for Last 24 Hours 03/07/22 03/08/22 03/09/22 23:59 23:59 23:59 Intake Total 3753.00 / 3753.00 1245 / 1245 2200 / 2200 Output Total 1000 / 1350 1225 / 1225 1600 / 1600 Balance 2753.00 / 2403.00 600 / 600 Lab / Micro Data Result Diagrams: 03/09/22 01:52 03/09/22 01:52 Labs: Laboratory Results - last 24 hr 03/06/22 14:26: Diff Path Review Reviewed 03/07/22 06:00: Diff Path Review Reviewed 03/09/22 01:52: Vancomycin Trough 18.6 H 03/09/22 01:52: WBC 20.0 H, RBC 3.30 L, Hgb 7.4 L, Hct 26.2 L, MCV 79.4 L, MCH 22.4 L, MCHC 28.2 L, RDW Std Deviation 50.8 H, RDW Coeff of Andrew 17.6 H, Plt Count 718 H, MPV 8.0, Immature Gran % (Auto) APPRENTICE LINEMAN THIRD STEP, Neut % (Auto) APPRENTICE LINEMAN THIRD STEP, Lymph % (Auto) APPRENTICE LINEMAN THIRD STEP, [place] % (Auto) APPRENTICE LINEMAN THIRD STEP, Eos % (Auto) APPRENTICE LINEMAN THIRD STEP, Baso % (Auto) APPRENTICE LINEMAN THIRD STEP, Absolute Neuts (auto) 13.4 H, Absolute Lymphs (auto) 0.60 L, Total Counted 100, Neutrophils % (Manual) 65, Lymphocytes % (Manual) 28, Monocytes % (Manual) 3, Eosinophils % (Manual) 2, Metamyelocytes % 2 H, Nucleated RBC % 0, Diff Path Review May lori, Platelet Estimate [employer], Polychromasia RARE 03/09/22 01:52: Sodium 136, Potassium 3.9, Chloride 104, Carbon Dioxide 30.0, Anion Gap 2 L, BUN 14, Creatinine 0.55 L, Estim Creat Clear Calc 140.44, Est GFR (MDRD) Af Amer 202, Est GFR (MDRD) Non-Af 167, BUN/Creatinine Ratio 25.6 H, Glucose 139 H, Calcium 8.2 L Micro: Microbiology 03/06/22 16:18 Blood Culture (Wb) - Anticubital Right Blood Culture - Preliminary No growth in 48 hours. 03/06/22 16:08 Blood Culture (Wb) - Anticubital Left Blood Culture - Preliminary No growth in 48 hours. 03/06/22 20:23 Fluid - Pleural (Lung) Gram Stain - Final 03/06/22 20:23 Fluid - Pleural (Lung) Body Fluid Culture - Preliminary Alpha hemolytic organism 03/06/22 20:23 Fluid - Pleural (Lung) Anaerobic Culture - Preliminary No growth in 48 hours. 03/06/22 16:52 Urine, Clean Catch Urine Culture - Final Mixed Gram Positive Organisms 03/06/22 16:52 Urine, Clean Catch Legionella Antigen - Final 03/06/22 16:52 Urine, Clean Catch Streptococcus pneumoniae Antigen (M - Final Streptococcus pneumonia Ag 03/06/22 13:45 Nasal Secretion SARS-CoV-2 & FLU Antigen (Rapid) - Final Physical Exam Narrative Patient is a chronic smoker started at the age of 14-15, at time he was 2 packs/day but recently down to quarter pack a day before admission. Physical exam General: Alert, Oriented x3, Cooperative, thin built. HEENT: Atraumatic, PERRLA, EOMI, Normocephalic Oral: Oral mucosa dry. No Gingival or Mucosal Lesions/ Ulcerations Neck: Supple, No JVD, Negative Carotid Bruits Lungs: Air entry diminished in left lung base, slight improvement on left upper lobe. Chest tube present. No airleak. No crepitations. Cardiovascular: Regular rate, Regular Rhythm, Normal S1, Normal S2, No murmurs Abdomen: Bowel Sounds Present, Soft, Non Tender, Non-Distended : No renal angle tenderness. No suprapubic tenderness. Extremities: No edema, Capillary Refill Less than 3 Seconds Skin: No rashes, No breakdown Musculoskeletal: ROM intact. No Tenderness to Palpation of Joints or Extremities Neurological: Cranial nerves II-XII grossly intact, DTR 2+/4 and Symmetrical Psych/Mental Status: Normal Affect, Appropriate. Assessment & Plan Assessment/Plan (1) Microcytic anemia: (2) Shortness of breath: (3) Pleural effusion, left: (4) Thrombophilia: (5) Leukocytosis: PLAN: Plan 1. Acute large pleural effusion/acute empyema, status left sided thoracocentesis/thoracostomy tube Fluid was purulent; fluid cultures are pending Admitting chest x-ray showed left lobe mass, diaphragm elmo or infiltrate. CTA of the chest shows loculated left pleural effusion with pleural fluid extends to the rib into the left axillary space. 03/08: Discussed with nursing staff. Patient might go tomorrow morning. Accepted in [facility]. HIV status is negative. WBC count increased to 26.3 Urine streptococcal antigen positive. General surgery following; continue on IV vancomycin and Zosyn 03/09: Patient has leukocytosis with left shift. 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 She states he has some discharges pending inpatient most likely will go in the evening today. Also discussed with our surgeon and we agreed that we are not able to offer any service here as patient needs CT surgeon and source control. Blood culture showing alphahemolytic organism. Urine positive for pneumococcal pneumonia. Urine culture less than 1000 colonies. Blood culture negative for more than 48 hours. Patient on IV vancomycin and Zosyn. 2. Severe anemia, iron deficient, hemoglobin is 7.1, dropped from 8.7 Iron stores shows iron saturation of 8% We will transfuse 1 unit of packed RBCs as well as give IV Venofer x1. Hemoglobin down to 7.1%. iron infusion ordered 03/09: Slight improvement in hemoglobin 7.4. Continue iron infusion. 3. Thrombocytosis, reactive, improved to 777 from 1034 We will continue to trend 4. severe protein calorie malnutrition, mogul operator consulted, continue on supplements, 5. Nicotine dependence, advised to quit, declines replacement 6. DVT per Lasix? Lovenox discontinued hemoglobin 7.1. Bilateral SCDs. Total time of the visit including total time spent in counseling or coordination of care, (more than 50% of the total time, spent in obtaining medical information from nurses and other ancillary care providers,explaining to the patient about labs, imaging, diagnosis and management of active complex medical conditions), medical record review, discussion with the surgeon and employee benefits coordinator of [facility], review of labs and imaging is 45 minutes. Charges/Coding Visit Charges Inpatient E&M: 40564 Subs Hosp L3
[2022-03-09 15:29] LABS: Pathologist Review Reviewed
[2022-03-09] MEDS: Juven (unflavored) Packet 1 PACKET PO (18:02)
[2022-03-09] MEDS: oxyCODONE 5 MG Tablet PO (22:53)
[2022-03-10 00:50] VITALS: BP 111/72; PULSE 106; RESP 18; TEMP 36.8; O2SAT 94
--- NOTE | 2022-03-10 07:16 | PCM.DC.SUM ---
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 Acute large pleural effusion/acute empyema, status left sided thoracocentesis/thoracostomy tube Fluid was purulent; fluid cultures are pending Admitting chest x-ray showed left lobe mass, diaphragm elmo or infiltrate. CTA of the chest shows loculated left pleural effusion with pleural fluid extends to the rib into the left axillary space. 03/08: Discussed with nursing staff. Patient might go tomorrow morning. Accepted in [facility]. HIV status is negative. WBC count increased to 26.3 Urine streptococcal antigen positive. General surgery following; continue on IV vancomycin and Zosyn 03/09: Patient has leukocytosis with left shift. 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 She states he has some discharges pending inpatient most likely will go in the evening today. Also discussed with our surgeon and we agreed that we are not able to offer any service here as patient needs CT surgeon and source control. Blood culture showing alphahemolytic organism. Urine positive for pneumococcal pneumonia. Urine culture less than 1000 colonies. Blood culture negative for more than 48 hours. Patient on IV vancomycin and Zosyn. 2. Severe anemia, iron deficient, hemoglobin is 7.1, dropped from 8.7 Iron stores shows iron saturation of 8% We will transfuse 1 unit of packed RBCs as well as give IV Venofer x1. Hemoglobin down to 7.1%. iron infusion ordered 03/09: Slight improvement in hemoglobin 7.4. Continue iron infusion. 3. Thrombocytosis, reactive, improved to 777 from 1034 We will continue to trend 4. severe protein calorie malnutrition, advertising assistant consulted, continue on supplements, 5. Nicotine dependence, advised to quit, declines replacement 6. DVT per Lasix? Lovenox discontinued hemoglobin 7.1. Bilateral SCDs. Total time of the visit including total time spent in counseling or coordination of care, (more than 50% of the total time, spent in obtaining medical information from nurses and other ancillary care providers,explaining to the patient about labs, imaging, diagnosis and management of active complex medical conditions), medical record review, discussion with the surgeon and material coordinator of [facility], review of labs and imaging is 45 minutes. Medications at Discharge Home Medications NK 03/06/22 Hospital Course Summary of Care Provided Hospital Course: This is 51-year-old male past medical history of asthma was admitted through ER on [facility] floor for increasing dyspnea on exertion and shortness of breath for 1 day before admission.? He states he went to [employer] to get a Primatene Mist inhaler, and short distances he became very winded.? He denies any chest pain.? No fevers or chills.? He has occasional cough that sometimes is productive of green to yellow sputum.? He denies any increased leg swelling.? He is a smoker. Detailed hospital course as mentioned below 1. Acute large pleural effusion/acute empyema, status left sided thoracocentesis/thoracostomy tube Fluid was purulent; fluid cultures are pending Admitting chest x-ray showed left lobe mass, diaphragm elmo or infiltrate.? CTA of the chest shows loculated left pleural effusion with pleural fluid extends to the rib into the left axillary space. 03/08: Discussed with nursing staff.? Patient might go tomorrow morning.? Accepted in [facility].? HIV status is negative.? WBC count increased to 26.3 Urine streptococcal antigen positive. General surgery following; continue on IV vancomycin and Zosyn 03/09: Patient has leukocytosis with left shift.? 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 She states he has some discharges pending inpatient most likely will go in the evening today.? Also discussed with our surgeon and we agreed that we are not able to offer any service here as patient needs CT surgeon and source control.? Blood culture showing alphahemolytic organism.? Urine positive for pneumococcal pneumonia.? Urine culture less than 1000 colonies.? Blood culture negative for more than 48 hours.? Patient on IV vancomycin and Zosyn. 2.? Severe anemia, iron deficient,? hemoglobin is 7.1, dropped from 8.7 Iron stores shows iron saturation of 8% We will transfuse 1 unit of packed RBCs as well as give IV Venofer x1. Hemoglobin down to 7.1%. ? iron infusion ordered 03/09: Slight improvement in hemoglobin 7.4.? Continue iron infusion. 3. Thrombocytosis, reactive, improved to 777 from 1034 We will continue to trend 4.? severe protein calorie malnutrition, advertising assistant consulted, continue on supplements, 5. Nicotine dependence, advised to quit, declines replacement 6. DVT per Lasix? Lovenox discontinued hemoglobin 7.1.? Bilateral SCDs. The patient went to [facility] greeting card editor about 1 AM on 03/10/2022 therefore patient was last seen by me on 03/09/2022. Patient on IV antibiotics and went to [facility] on same medications. General surgeon Dr. Pagan also talked to cardiothoracic surgery, [facility] yesterday regarding urgency of transfer. Physical Exam Narrative Please see physical exam finding on last progress note. Weight / BMI Weight Weight: 139 lb 5.314 oz Body Mass Index (BMI) 21.1 ABG / Lab / Microbiology Data Result Diagrams: 03/09/22 01:52 03/09/22 01:52 Laboratory: Laboratory Results - last 24 hr 03/06/22 14:26: Diff Path Review Reviewed 03/07/22 06:00: Diff Path Review Reviewed 03/09/22 01:52: Diff Path Review Reviewed Microbiology: Microbiology 03/06/22 16:18 Blood Culture (Wb) - Anticubital Right Blood Culture - Preliminary No growth in 48 hours. 03/06/22 16:08 Blood Culture (Wb) - Anticubital Left Blood Culture - Preliminary No growth in 48 hours. 03/06/22 20:23 Fluid - Pleural (Lung) Gram Stain - Final 03/06/22 20:23 Fluid - Pleural (Lung) Body Fluid Culture - Preliminary Alpha hemolytic organism 03/06/22 20:23 Fluid - Pleural (Lung) Anaerobic Culture - Preliminary No growth in 48 hours. 03/06/22 16:52 Urine, Clean Catch Urine Culture - Final Mixed Gram Positive Organisms 03/06/22 16:52 Urine, Clean Catch Legionella Antigen - Final 03/06/22 16:52 Urine, Clean Catch Streptococcus pneumoniae Antigen (M - Final Streptococcus pneumonia Ag 03/06/22 13:45 Nasal Secretion SARS-CoV-2 & FLU Antigen (Rapid) - Final Meaningful Use Info Meaningful Use Diagnoses (Choose all that apply): None applicable Discharge Plan Admission Admit Date/Time: 03/06/22 18:48 Attending Provider: Jin Tamayo Primary Care Provider: Care Physician,No Primary Consulting Providers: Nisreen Sterling ; Cynthia Alejandre Discharge Orders/Prescriptions Prescriptions: No Action NK Referrals / Follow Up: Care Physician,No Primary [Primary Care Provider] - NOT,DEFINED [Non-Staff] - Disposition Disposition (needs filled in before D/C Order can be placed): Acute Care Hospital Charges/Coding Visit Charges Inpatient E&M: 32486 Disch Hosp >30min
== END 2022-03-10 01:00 | disposition short-term general hospital (02) | DRG 186 ==
LOC: ED 18:06 → MS3 19:58
PROVIDERS: Hospitalist; Admitting Provider Internal Medicine; Emergency Provider Emergency Medicine; Visit Provider Internal Medicine
DX: J90 Pleural effusion, not elsewhere classified (principal); J85.1 Abscess of lung with pneumonia; E43 Unspecified severe protein-calorie malnutrition; J13 Pneumonia due to Streptococcus pneumoniae; D68.59 Other primary thrombophilia; E87.1 Hypo-osmolality and hyponatremia; F17.210 Nicotine dependence, cigarettes, uncomplicated; D50.9 Iron deficiency anemia, unspecified; D72.829 Elevated white blood cell count, unspecified; R09.02 Hypoxemia; Z68.21 Body mass index [BMI] 21.0-21.9, adult; Z20.7 Contact with and (suspected) exposure to pediculosis, acariasis and other infestations
CPT/HCPCS: 32551; 36415; 71045; 71046; 71275; 80048; 80053; 80202; 81001; 82728; 82945; 83540; 83550; 83605; 83615; 83735; 84100; 84157; 84443; 85025; 85045; 85379; 85610; 85730; 86703; 86850; 86900; 86901; 86920; 86922; 87040; 87070; 87075; 87077; 87086; 87088; 87186; 87205; 87428; 87449; 87641; 88108; 88305; 88313; 93005; 94640; 94760; 94762; 97802; 99252; 99284; 99406; J7030; J7040; J7050; P9016; Q9967; A4216; G0463; J0696; J1940; J2916